=== PATIENT | male | born 2000 | race Caucasian/White ===

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

== ENCOUNTER 2022-02-11 22:06 | Observation (INO) | payer MEDICAID, SELFPAY ==
--- OUTSIDE RECORDS SUMMARY | 2022-02-11 22:13 | XMS_ITS ---
:2000 Author Care Team Providers Name Role Phone ERVIN REDD Primary Care Provider [phone] Allergies Code Code System Name Reaction Severity Status Onset 723 RxNorm Amoxicillin Rash Moderate Active ? Medications Name Status Start Date Stop Date ? ? chlorhexidine gluconate 0.12 % mouthwash Active ? Not available doxycycline monohydrate 100 mg capsule Active ? Not available Flonase Allergy Relief 50 mcg/actuation nasal spray,suspension A ctive ? Not available Diamondhead 1 spray every day by intranasal route. hydrocodone 5 mg-acetaminophen 325 mg tablet Active ? Not available ibuprofen 600 mg tablet Active ? Not avai lable Mucinex 600 mg tablet, extended release Active ? Not available Take 1 tablet every 12 hours by oral route as needed. sulfamethoxazole 800 mg-trimethoprim 160 mg tablet Active ? Not available Take 1 tablet every 12 hours by oral route for 5 days. triamcinolone acetonide 0.1 % topical ointment Active ? Not available Problems None recorded. Procedures None recorded. Results Lab Results None recorded. Past Encounters 10/22/2021 Multiple Joint Pain; Muscle Weakness Yanelis Leiva, PT: [address] [place] [phone], Ph. 09/21/2021 Multiple Joint Pain; Muscle Weakness Yanelis Leiva, PT: [address] [place] [phone], Ph. 08/31/2021 Multiple Joint Pain; Muscle Weakness Yanelis Leiva, PT: [address] [place] [phone], Ph. 08/24/2021 Multiple Joint Pain; Muscle Weakness Yanelis Leiva, PT: [address] [place] [phone], Ph. 08/10/2021 Multiple Joint Pain; Muscle Weakness Yanelis Leiva, PT: [address] [facility] [address], [place] [address], Ph. 08/03/2021 Multiple Joint Pain; Muscle Weakness Yanelis Leiva, PT: [address] [facility], [place] [phone], Ph. 07/16/2021 Yanelis Leiva, PT: [address] [facility], [place] [phone], Ph. Social History None recorded. Vaccine List None recorded. Plan of Care Reminders Provider Appointments None recorded. ? ? Lab None recorded. ? ? Referral None recorded. ? ? Procedures None recorded. ? ? Surgeries None recorded. ? ? Imaging None recorded. ? ? Vitals None recorded.
[2022-02-11 22:29] VITALS: BP 130/73; PULSE 98; RESP 18; TEMP 36.9; O2SAT 99
--- NOTE | 2022-02-11 22:32 | ED.GENADUL_ITS ---
Discharge Plan Disposition Patient Disposition: [facility] INPATIENT Condition: Stable Discharge Details Clinical Impression: Abdominal pain, Diarrhea Admit Date/Time: 02/12/22 00:13 Admit Provider: Abigail Hazel Attending Provider: Abigail Hazel Primary Care Provider: Radha Boles ED Provider: Matt Fish Medical Decision Making Patient presenting with 1 month of worsening diarrhea, weight loss, abdominal pain, nausea. Family history of Crohn's disease. Previous CT scan with diagnosis of colitis. Extremely thin with diffusely tender abdomen but otherwise normal vital signs and exam. At this point I would suspect patient also has Crohn's disease. IV established and laboratory studies sent including stool for pathogens and O&P. Laboratory studies are reassuring. Does have slightly elevated white count. Case discussed with surgery per request of observation admission overnight for hydration and consideration of colonoscopy to evaluate for possibility of Crohn's. Dr. Hazel has agreed to admit the patient. Patient and father agree. Lab Data Lab results reviewed: Yes I reviewed the patient's lab results. HPI General Mode of arrival: ambulatory . Date/Time Provider Initiated Documentation: 02/11/22 22:32 . Limitations to Documentation: no limitations . Information obtained by: patient and RN notes reviewed . HPI Narrative: Patient presents to ED with abdominal pain, nausea, diarrhea worsening over the course of a month. He is now having vomiting and on occasion bloody diarrhea. Patient initially seen at [facility] a month ago where CT scan reportedly showed colitis. Patient treated with a course of Bactrim with no improvement. This week seen by primary care. Started on famotidine and probiotic. Was also given ondansetron to help with nausea. Has lost 15 pounds in the last month. Is unable to eat anything and has difficulty with just fluids. Denies any fever. Denies any travel. Denies any contaminated food or water. Does have family history of Crohn's with mother, aunt and grandmother all diagnosed with the disease. Related Data Home Medications Medication Instructions Recorded Confirmed fluticasone propionate 50 1 spray intranasal DAILY #16 grams 01/05/22 02/09/22 mcg/actuation nasal spray,suspension (Flonase Allergy Relief) famotidine 20 mg tablet (Pepcid) 20 mg PO DAILY #14 tabs 02/09/22 02/09/22 ondansetron 4 mg disintegrating 4 mg PO Q8H PRN nausea and 02/09/22 02/09/22 tablet vomiting #21 tabs lactobacillus combination no.4 3 1 cell PO DAILY 02/11/22 02/11/22 billion cell capsule (Probiotic) Previous Rx's Medication Instructions Recorded fluticasone propionate 50 1 spray intranasal DAILY #16 grams 01/05/22 mcg/actuation nasal spray,suspension (Flonase Allergy Relief) famotidine 20 mg tablet (Pepcid) 20 mg PO DAILY #14 tabs 02/09/22 ondansetron 4 mg disintegrating 4 mg PO Q8H PRN nausea and 02/09/22 tablet vomiting #21 tabs Allergies Allergy/AdvReac Type Severity Reaction Status Date / Time amoxicillin Allergy Intermediate Skin Rash Verified 02/11/22 22:35 Review of Systems Narrative: 07/16 Review of Systems completed and is negative except as stated above in HPI (Systems reviewed: Const, Eyes, ENT, Resp, CV, GI, , MSK, Skin, Neuro) PFSH All Active Problems (Updated 02/12/22 @ 03:38 by Matt Fish MD) Soft tissue mass (Chronic) Medial aspect of left knee-per MRI osteochondroma- repeat MRI in one year Foot pain (Chronic) Noted overpronation of the ankles; joint laxity of knees and ankles; questioning leg length abnormality- refer to PT at [facility] Anterior epistaxis (Chronic) Acute bacterial sinusitis (Acute) Abdominal pain (Acute) Diarrhea (Acute) Medical History ADHD (attention deficit hyperactivity disorder) On no medication Autism Chronic pain syndrome Evaluation by [facility] physical therapy- exam, history and limitations consistent with chronic pain or fibromyalgia syndrome (08/04/21) Learning difficulty (08/16/12) Graduated from [employer] in spring 2020 and had an IEP throughout his education Surgical History Hx of wisdom tooth extraction Family History GRANDPARENT Anxiety Depression OTHER RELATIVE Cancer Asthma Social History Smoking/Tobacco Use Status: Never Smoking risk assessment performed?: Yes Alcohol Intake: never Substance use type: does not use Pets and animals: Yes Pets and animals: cat(s) and dog(s) Current gender identity: male Seatbelt use: always Helmet use: Yes Helmet use: always Fire extinguisher in home: Yes Carbon monox detector in home: Yes Firearms in home: Yes Firearms unloaded and locked: Yes Do you feel safe at home: Yes Do you feel safe in your relationship?: Yes Exam Narrative Exam Narrative: Const: Thin young male in NAD. HEENT: NC/AT. Normal facial exam. Eyes: Normal conjunctiva and sclera. Neck: Supple. Trachea midline. Lungs: Normal respiratory effort. Lungs are clear. Cor: RRR without murmur/gallop. Good radial pulses. GI: Soft. ND. Diffusely tender throughout with voluntary guarding. Neuro: A+O x 3. Normal speech, mentation, gait. Cranial nerves II - XII grossly intact. No gross motor or sensory deficit. Ext: No C/C/E. Skin: Warm and dry without rash.
[2022-02-11] MEDS: Ketorolac 15 MG/ML VIAL IVP (23:24)
[2022-02-11] MEDS: Prochlorperazine 10 MG/2 ML VIAL IVP (23:25)
[2022-02-11] MEDS: Lactated Ringers 1,000 ML 1000 ML IV (23:25)
[2022-02-11 23:32] LABS: Abs Immature Grans 0.06 10^3/uL (0.0-0.06); Absolute Basophil Count 0.08 10^3/uL (0.0-0.2); Absolute Monocyte Count 2.53 10^3/uL (0.1-0.8); Basophils % 0.6; Eosinophils % 0.8; HCT 42.6 % (40.0-50.0); HGB 14.7 g/dL (13.5-17.5); Immature Grans % 0.5; Lymphocytes % 13.4; MCHC 34.5 % (32.0-36.0); MCV 90 fL (80-95); Monocytes % 19.3; Neutrophils % 65.4; Platelet Count 234 10^3/uL (130-400); RBC 4.74 10^6/uL (4.36-5.78); RDW 12.3 % (11.8-14.1); RDW-SD 40.7 fL; WBC 13.09 10^3/uL (4.4-10.8)
[2022-02-11 23:34] LABS: Absolute Lymphocyte Count 1.75 10^3/uL (1.2-3.4); Absolute Neutrophil Count 8.56 10^3/uL (1.2-6.7)
[2022-02-11 23:47] LABS: ALT 12 U/L (16-63); AST 8 U/L (15-37); Albumin 3.3 g/dL (3.4-5.0); Alkaline Phosphatase 62 U/L (46-116); Anion Gap 8.3 mmol/L (3-11); BUN 9 mg/dL (7-18); Bilirubin, Total 1.1 mg/dL (0.2-1.0); CO2 27.7 mmol/L (21.0-32.0); CREATININE 0.9 mg/dL (0.70-1.30); Calcium 8.5 mg/dL (8.5-10.1); Chloride 99 mmol/L (98-107); Glucose 111 mg/dL (74-106); Lipase 20 U/L (73-393); Magnesium 2.4 mg/dL (1.8-2.4); Potassium 3.7 mmol/L (3.5-5.1); Sodium 135 mmol/L (136-145); Total Protein 6.5 g/dL (6.4-8.2)
[2022-02-11 23:48] LABS: Diff Comment Agrees w/ Instrument; RBC Morphology Normal
[2022-02-12 00:29] LABS: Source Nasal/Nares
[2022-02-12] MEDS: Lactated Ringers 1,000 ML 125 ML IV ×3 (01:19→19:36)
[2022-02-12 01:20] VITALS: BP 105/63; PULSE 79; RESP 16; TEMP 36.7; O2SAT 95
[2022-02-12 08:44] VITALS: BP 106/65; PULSE 81; RESP 16; TEMP 36.5; O2SAT 97
--- NOTE | 2022-02-12 08:51 | W.PM.HP.N ---
Date of service: 02/12/22 Time of Service: 07:51 Assessment and Plan Assessment and plan (1) Diarrhea: Status: Acute Assessment and plan: Informed consent is obtained for the procedural (explained in simple layman's terms that the pt and/or family could understand) explaining risks vs benefits and alternatives to the procedure and consequences if we do not do the procedure and need/rational for the procedure. Risks include but are not limited to: bleeding, infection, perforation of esophagus, stomach, colon, small intestines, bronchus or trachea, or PTX. This would necessitate emergency surgery to repair the damage w/ possible ostomy; and other associated complications w/ the required surgery. Also complications of anesthesia including aspiration, AR/CVA/. I did review his CT and labs from [facility]. He has been running persistent white count around 12. His CRP from [facility] was 7. His CRP today is 3.7. They did not do any stool studies at [facility]. Full studies here are still pending. Stool fecal calprotectin was not ordered. This is a send out for our institution. (2) Abdominal pain: Status: Acute (3) Family history of Crohn's disease: Status: Acute History of Present Illness Narrative: Tomas is a 21-year-old male who presented to the ER last night complaining of diarrhea and abdominal pain. This is been going on for more than 1 month's time it is becoming worse he has 6+ stools a day they range from [place] 6-7. He occasionally has some blood with wiping only when he wiped. He denies any travel he denies any new supplements or vitamins. He denies any new lifestyle changes. He denies any new pets in the home. He has been given Zofran Pepcid Bactrim and probiotics. These have helped. He did have a CT scan at [facility] which showed diffuse thickening of the colon wall and he was diagnosed with colitis. When he eats he gets nausea and stomach cramps. He has not eaten for the last 2 days now. His symptoms are becoming worse. His mother, and his maternal aunt, and maternal grandmother all have Crohn's. Mother takes currently. He denies any history of diabetes or seizures. He does have reactive airway disease that is worse when he becomes ill and then he requires an inhaler. He does not require inhaler on a regular basis. He denies any heart problems or heart disease. He denies any hypertension. He denies any problems with joint pain or swelling. He denies any problems with rashes. No jaundice. Review of Systems All systems reviewed & are unremarkable except as noted in HPI and below PFSH All Active Problems (Updated 02/12/22 @ 14:37 by Abigail Hazel DO) Family history of Crohn's disease (Acute) Diarrhea (Acute) Soft tissue mass (Chronic) Medial aspect of left knee-per MRI osteochondroma- repeat MRI in one year Foot pain (Chronic) Noted overpronation of the ankles; joint laxity of knees and ankles; questioning leg length abnormality- refer to PT at [facility] Anterior epistaxis (Chronic) Acute bacterial sinusitis (Acute) Abdominal pain (Acute) Diarrhea (Acute) Medical History ADHD (attention deficit hyperactivity disorder) On no medication Autism Chronic pain syndrome Evaluation by [facility] physical therapy- exam, history and limitations consistent with chronic pain or fibromyalgia syndrome (08/04/21) Learning difficulty (08/16/12) Graduated from [employer] in spring 2020 and had an IEP throughout his education Surgical History Hx of wisdom tooth extraction Family History GRANDPARENT Anxiety Depression OTHER RELATIVE Cancer Asthma Social History Smoking/Tobacco Use Status: Never Smoking risk assessment performed?: Yes Alcohol Intake: never Substance use type: does not use Pets and animals: Yes Pets and animals: cat(s) and dog(s) Current gender identity: male Seatbelt use: always Helmet use: Yes Helmet use: always Fire extinguisher in home: Yes Carbon monox detector in home: Yes Firearms in home: Yes Firearms unloaded and locked: Yes Do you feel safe at home: Yes Do you feel safe in your relationship?: Yes Meds Allergies and Home Medications Allergies Allergy/AdvReac Type Severity Reaction Status Date / Time amoxicillin Allergy Intermediate Skin Rash Verified 02/11/22 22:35 Home Medications Medication Instructions Recorded Confirmed Type fluticasone propionate 50 1 spray intranasal DAILY #16 grams 01/05/22 02/09/22 Rx mcg/actuation nasal spray,suspension (Flonase Allergy Relief) famotidine 20 mg tablet (Pepcid) 20 mg PO DAILY #14 tabs 02/09/22 02/09/22 Rx ondansetron 4 mg disintegrating 4 mg PO Q8H PRN nausea and 02/09/22 02/09/22 Rx tablet vomiting #21 tabs lactobacillus combination no.4 3 1 cell PO DAILY 02/11/22 02/11/22 History billion cell capsule (Probiotic) Exam Const Other: PHYSICAL EXAM GENERAL APPEARANCE: Alert, healthy appearance, oriented, in no acute distress SKIN: No rashes.? No breakdown HYDRATION: Well hydrated HEAD, EYES, EARS, NECK, THROAT: Head is normocephalic, pupils equal, round, reactive to light and accommodation, ocular movement intact, sclera clear and no jaundice. ?Dentition intact. No sore throat.? No jaw pain. No thrush NECK: Supple, Trachea midline. No JVD. LUNGS: normal respiration/nl chest excursion. ?Clear to auscultation B/l no R/R/W ?HEART: Regular rate and rhythm, EXTREMITY: No edema or cyanosis? no leg pain, redness, swelling.? No IV infiltration ABDOMEN: mild diffuse tender to palpation, no masses or distention, no hernias. Normal bowel sounds NEURO: no focal neuro deficits. ? Results Labs Result diagrams: 02/12/22 09:03 02/11/22 23:21 Labs: Laboratory Results - last 24 hr 02/11/22 02/11/22 02/12/22 23:21 23:21 00:25 WBC 13.09 H RBC 4.74 Hgb 14.7 Hct 42.6 MCV 90 MCH 31.0 MCHC 34.5 RDW 12.3 Plt Count 234 MPV 9.0 Immature Gran % 0.5 Neutrophils % 65.4 Lymphocytes % 13.4 Monocytes % 19.3 Eosinophils % 0.8 Basophils % 0.6 Nucleated RBC % 0.0 Absolute Neutrophils 8.56 H Absolute Lymphocytes 1.75 Absolute Monocytes 2.53 H Absolute Eosinophils 0.10 Absolute Basophils 0.08 RBC Morphology Normal Sodium 135 L Potassium 3.7 Chloride 99 Carbon Dioxide 27.7 Anion Gap 8.3 BUN 9 Creatinine 0.9 Estimated GFR/1.73 m2 >= 60.00 Glucose 111 H Calcium 8.5 Magnesium 2.4 Total Bilirubin 1.1 H AST 8 L ALT 12 L Alkaline Phosphatase 62 Total Protein 6.5 Albumin 3.3 L Lipase 20 COVID-19 Source Nasal/Nares Last Vital Signs Temp 36.5 C 02/12/22 08:44 Pulse 81 02/12/22 08:44 Resp 16 02/12/22 08:44 BP 106/65 02/12/22 08:44 Pulse Ox 97 02/12/22 08:44
[2022-02-12 08:58] LABS: COVID-19 PCR Negative (Negative)
[2022-02-12 09:05] LABS: Abs Immature Grans 0.05 10^3/uL (0.0-0.06); Absolute Eosinophil Count 0.14 10^3/uL (0.0-0.7); Absolute Lymphocyte Count 1.27 10^3/uL (1.2-3.4); Absolute Monocyte Count 2.29 10^3/uL (0.1-0.8); Basophils % 0.8; Eosinophils % 1.1; HCT 42.6 % (40.0-50.0); HGB 14.7 g/dL (13.5-17.5); Immature Grans % 0.4; Lymphocytes % 10.2; MCH 31.1 pg (27.0-33.0); MCHC 34.5 % (32.0-36.0); MCV 90 fL (80-95); MPV 8.9 fL (8.0-11.0); Monocytes % 18.4; Neutrophils % 69.1; Platelet Count 215 10^3/uL (130-400); RBC 4.73 10^6/uL (4.36-5.78); RDW 12.5 % (11.8-14.1); RDW-SD 41.1 fL; WBC 12.45 10^3/uL (4.4-10.8)
[2022-02-12 09:20] LABS: Diff Comment Diff Reviewed; RBC Morphology Normal
--- NOTE | 2022-02-12 14:19 | ANES.PREOP_ITS ---
General Info Date of Service Date Performed: 02/12/22 Height: 6 ft 1 in Weight: 58.967 kg Body Mass Index (BMI): 17.1 Surgical Procedure: Operation Date: 02/12/22 14:40 Proposed Procedure Side Surgeon p Flexible Sigmoidoscopy Abigail Hazel, DO Meds Allergies and Home Medications Allergies Allergy/AdvReac Type Severity Reaction Status Date / Time amoxicillin Allergy Intermediate Skin Rash Verified 02/11/22 22:35 Home Medication Medication Instructions Recorded fluticasone propionate 50 1 spray intranasal DAILY #16 grams 01/05/22 mcg/actuation nasal spray,suspension (Flonase Allergy Relief) famotidine 20 mg tablet (Pepcid) 20 mg PO DAILY #14 tabs 02/09/22 ondansetron 4 mg disintegrating 4 mg PO Q8H PRN nausea and 02/09/22 tablet vomiting #21 tabs lactobacillus combination no.4 3 1 cell PO DAILY 02/11/22 billion cell capsule (Probiotic) Current Visit Medications: Current Medications Generic Name Dose Route Start Last Admin Trade Name Freq PRN Reason Stop Dose Admin Sodium Chloride 500 mls @ 0 mls/hr 02/11/22 22:49 Saline 500ml Bag IV PRN PRN As Directed Ringer's Solution 1,000 mls @ 125 mls/hr 02/12/22 00:30 02/12/22 14:07 IV 0 mls/hr INFUSION MERCEDES Infusion IV Miscellaneous Supplies 1 each 02/11/22 23:00 Iv Access IV DIRECTED MERCEDES Sodium Chloride 0 ml 02/11/22 22:49 Normal Saline Flush 10 Ml Syr IVP PRN PRN PFSH Active Problems Active Problems: Problem Status Onset Code Soft tissue mass M79.89 Foot pain M79.673 Anterior epistaxis R04.0 Acute bacterial sinusitis J01.90, B96.89 Abdominal pain R10.9 Diarrhea R19.7 Medical History Medical History ADHD (attention deficit hyperactivity disorder) On no medication Autism Chronic pain syndrome Evaluation by [facility] physical therapy- exam, history and limitations consistent with chronic pain or fibromyalgia syndrome (08/04/21) Learning difficulty (08/16/12) Graduated from [employer] in spring 2020 and had an IEP throughout his education Surgical History Surgical History Hx of wisdom tooth extraction Tobacco Smoking/Tobacco Use Status: Never Passive smoking exposure: No Alcohol Alcohol Intake: never Substance Use Substance use type: does not use Vital Signs and Lab Results Vital Signs Most Recent Vital Signs in EMR: Most Recent Vital Signs Temp Pulse Resp BP Pulse Ox 36.5 C 81 16 106/65 97 02/12/22 08:44 02/12/22 08:44 02/12/22 08:44 02/12/22 08:44 02/12/22 08:44 Lab Results Result Diagrams: 02/12/22 09:03 02/11/22 23:21 Blood Type / Crossmatch: No Data to Display Complete Blood Count: White Blood Count 12.45 10^3/uL (4.4-10.8) H 02/12/22 09:03 Red Blood Count 4.73 10^6/uL (4.36-5.78) 02/12/22 09:03 Hemoglobin 14.7 g/dL (13.5-17.5) 02/12/22 09:03 Hematocrit 42.6 % (40.0-50.0) 02/12/22 09:03 Platelet Count 215 10^3/uL (130-400) 02/12/22 09:03 Complete Metabolic Panel: Sodium Level 135 mmol/L (136-145) L 02/11/22 23:21 Potassium Level 3.7 mmol/L (3.5-5.1) 02/11/22 23:21 Chloride Level 99 mmol/L (98-107) 02/11/22 23:21 Carbon Dioxide Level 27.7 mmol/L (21.0-32.0) 02/11/22 23:21 Blood Urea Nitrogen 9 mg/dL (7-18) 02/11/22 23:21 Creatinine 0.9 mg/dL (0.70-1.30) 02/11/22 23:21 Estimated GFR/1.73 m2 >= 60.00 (mL/min/1.73m2) 02/11/22 23:21 Magnesium Level 2.4 mg/dL (1.8-2.4) 02/11/22 23:21 Calcium Level 8.5 mg/dL (8.5-10.1) 02/11/22 23:21 Albumin 3.3 g/dL (3.4-5.0) L 02/11/22 23:21 Glucose Level 111 mg/dL (74-106) H 02/11/22 23:21 C-Reactive Protein 3.70 mg/dL (0.0-0.3) H 02/12/22 09:03 Liver Function Panel: Alanine Aminotransferase (ALT/SGPT) 12 U/L (16-63) L 02/11/22 2 3:21 Aspartate Amino Transf (AST/SGOT) 8 U/L (15-37) L 02/11/22 23:2 1 Coagulation Panel: No Data to Display Cardiac Panel: No Data to Display Arterial Blood Gas: No Data to Display Venous Blood Gas: No Data to Display Pancreas Panel: Lipase 20 U/L (73-393) 02/11/22 23:21 Thyroid Panel: No Data to Display Infectious Disease: Coronavirus (COVID-19)(PCR) Negative (Negative) 02/12/22 00:25 Coronavirus 2019 Source Nasal/Nares 02/12/22 00:25 Blood Cultures: No Data to Display Toxicology Panel: No Data to Display Anesthesia Assessment and Plan Anesthesia History Personal History: No History of Anesthesia Complications and Awareness Under Anesthesia Family History: No Family History of Anesthesia Complications Exercise Tolerance Exercise Tolerance: Metabolic Equivalents>4 Pertinent Negatives Pertinent Negatives: No Symptoms of GERD, No Major Cardiovascular Symptoms or Complaints, No Major Pulmonary Symptoms or Complaints and No History of CVA/TIA Cardiac & Pulmonary Exam Cardiac Exam: Normal S1/S2 Heart Sounds Pulmonary Exam: Clear Bilateral Breath Sounds Cardiac and Pulmonary Comment:: Asthmatic cough with URI uses inhaler prn Implantable Cardiac Device Does patient have a Pacemaker or an ICD?: No Airway Exam Known Difficult Airway: No Mallampati Class: 1 Mouth Opening: Normal (> 3cm) Thyromental Distance: Greater than 3 cm Neck Range of Motion: Full ROM Neck Circumference: Normal Teeth Condition: Normal Dentition ASA Classification ASA Score: ASA 2 Emergency Case?: No NPO Status NPO Status: NPO Clears >2 hours, Solids >8 hours Anesthesia Plan Resuscitation Status: Full Code Anesthesia Technique: General Anesthesia Airway Planned: Natural Airway Monitors Used: Standard Monitors
[2022-02-12 14:24] VITALS: BMI 17.1
[2022-02-12] MEDS: Lactated Ringers 1,000 ML 30 ML IV (14:37)
--- NOTE | 2022-02-12 14:44 | INITIAL_ITS ---
- If Service Date Differs Date of service: 02/12/22 Time of Service: 14:44 Care Management Initial Assess REASON FOR HOSPITALIZATION:: Abdominal pain, Diarrhea PAST MEDICAL HISTORY/PAST SURGICAL HISTORY:: Colitis, Abdominal pain, family history of Crohn's disease, reactive airway disease. ADHD (attention deficit hyperactivity disorder). On no medication. Chronic pain syndrome. Evaluation by [facility] physical therapy- exam, history and limitations consistent with chronic pain or fibromyalgia syndrome (08/04/21). Learning difficulty: Graduated from [employer] in spring 2020 and had an IEP throughout his education, wisdom tooth extraction PREVIOUS FUNCTIONAL STATUS/SOCIAL/FAMILY SUPPORTS:: Mina resides in [place] and is independent at baseline. His parents are supportive and reside in [place]. CODE STATUS:: Full Code INSURANCE COVERAGE / FINANCIAL ISSUES:: [employer] CURRENT HOME/COMMUNITY SERVICES/EQUIPMENT:: Recent GI referral to [facility] PRIMARY CARE PHYSICIAN:: Dr. Boles; [place] POTENTIAL DISCHARGE NEEDS:: Colonoscopy anticipated, as well as outpatient follow up. PATIENT/FAMILY EDUCATION NEEDS:: Review discharge instructions, discuss Ask Me Three. ANTICIPATED BARRIERS TO DISCHARGE:: None identified.
--- NOTE | 2022-02-12 14:50 | BOWEL_PTH ---
PATIENT: Mina Verma LOC: U#:[id number] AGE/SX: 21/M ROOM: 207 RE02/12/[address]: Abigail Hazel : 2000 BED: A DIS: 02/14/2022 SPEC #: [id number] RECD: 02/12/22 15:31 STATUS: SABRINA REQ #: [id number] JERZY: 02/12/22 14:[address]: Abigail Hazel DEPT: Surgical Specimen RECD BY: Radha Kan ENTERED: 02/12/22 15:35 SP TYPE: Bowel OTHR DR: Radha Boles MD Tissues: 1 - BIOPSY BOWEL 2 - BIOPSY BOWEL 3 - BIOPSY BOWEL Procedures: GROSS AND MICRO LEVEL 4 Comments: [id number]
[2022-02-12 15:09] VITALS: BP 112/67; PULSE 82; RESP 16; TEMP 36.9; O2SAT 98
--- NOTE | 2022-02-12 15:41 | W.ANESPOSTOP ---
Postoperative Evaluation Date, Time and Location Date Performed: 02/12/22 Time Performed: 14:41 Patient Location: Day Surgery Unit Vital Signs Most Recent Imported Vital Signs: Most Recent Vital Signs Temp Pulse Resp BP Pulse Ox 36.9 C 82 16 112/67 98 02/12/22 15:09 02/12/22 15:09 02/12/22 15:09 02/12/22 15:09 02/12/22 15:09 Pain Score Most Recent Pain Score: Most Recent Pain Score Pain Level 0 02/12/22 15:09 Assessment Mental Status: Awake (Alert & Oriented to Patient Baseline) Airway and Respiratory Function: Patent airway with normal (patient baseline) respiratory exam Cardiovascular Function: Hemodynamically Stable Hydration Status: Adequately Hydrated Nausea & Vomiting: No Nausea or Vomiting Pain: Pt. Denies Any Pain Peripheral Nerve Block: Patient did not receive a nerve block
--- NOTE | 2022-02-12 15:44 | W.COLOREPORT ---
Colonoscopy Report Date of procedure: 02/12/22 Pre-op diagnosis general: diarrhea/ wt loss Post-op diagnosis procedure note: other (Crohns ) Surgeon: Abigail Hazel Anesthesia Type: General:No Airway Estimated blood loss (mL): 1 Pathology: other Complications: None Disposition: floor Procedure Description: After informed consent was obtained the patient was taken to the procedure room and placed in a left decubitous position. Monitors were applied and a time out was done. The patients name, date of , procedure, allergies to medications and metal in their body was reviewed. The patient was then sedated. Once sedated and comfortable a rectal exam was done. External exam was normal. Internal exam revealed a normal sphincter tone and no palpable masses. The prostate nl The scope was then introduced and retrofelexed. No internal hemorrhoids were identified. There is no anal or perianal disease identified. The scope is maneuvered up to the splenic flexure. The colon has diffuse patchy erythema that bleeds quite readily. It is covered with friable, yellowish membrane. Multiple biopsies are taken at 50/30/20 centimeters in the rectum. It bleeds quite readily. This almost looks like pseudomembranous colitis. But it also could be Crohn's disease. The colitis becomes more severe further we go up the colon. Is not safe to advance the scope past the splenic flexure and the procedure was terminated. scope was removed and the patient was woken up and taken back to Same day surgery in stable condition. The patient tolerated the procedure well and there were no immediate complications. Follow up: Patient will require a complete colonoscopy in the future.
[2022-02-12 16:59] LABS: C Diff PCR Positive (Negative)
[2022-02-12] MEDS: metroNIDAZOLE 500 MG/100 ML BAG 100 MG IVPB (18:10)
[2022-02-12 21:55] LABS: Campylobacter PCR Negative (Negative); Salmonella PCR Negative (Negative); Shiga Toxin PCR Negative (Negative); Shigella/Enteroinvasive Ecoli Negative (Negative)
--- NOTE | 2022-02-12 22:33 | W.PM.PROGNOT ---
Date of Service Date of service: 02/12/22 Time of Service: 16:00 Assessment and Plan Assessment and plan (1) Family history of Crohn's disease: Status: Acute (2) Diarrhea: Status: Acute Assessment and plan: I discussed the findings of colonoscopy with dad. Most likely this represents Crohn's. We do not have Biologics in house so we would need to start him on steroids. However I do want to check him for C. difficile prior to starting any steroids/immunosuppressants. the colon was red and inflamed with skip lesions, but it almost looks like he had pseudomembranes, so I do want to check for C. difficile in the off chance that this is C. difficile colitis on top of Crohn's disease. (3) Abdominal pain: Status: Acute Objective Last Vital Signs Temp 36.9 C 02/12/22 15:09 Pulse 82 02/12/22 15:09 Resp 16 02/12/22 15:09 BP 112/67 02/12/22 15:09 Pulse Ox 98 02/12/22 15:09 Laboratory Results - last 24 hr 02/11/22 02/11/22 02/12/22 23:21 23:21 00:25 WBC 13.09 H RBC 4.74 Hgb 14.7 Hct 42.6 MCV 90 MCH 31.0 MCHC 34.5 RDW 12.3 Plt Count 234 MPV 9.0 Immature Gran % 0.5 Neutrophils % 65.4 Lymphocytes % 13.4 Monocytes % 19.3 Eosinophils % 0.8 Basophils % 0.6 Nucleated RBC % 0.0 Absolute Neutrophils 8.56 H Absolute Lymphocytes 1.75 Absolute Monocytes 2.53 H Absolute Eosinophils 0.10 Absolute Basophils 0.08 RBC Morphology Normal Sodium 135 L Potassium 3.7 Chloride 99 Carbon Dioxide 27.7 Anion Gap 8.3 BUN 9 Creatinine 0.9 Estimated GFR/1.73 m2 >= 60.00 Glucose 111 H Calcium 8.5 Magnesium 2.4 Total Bilirubin 1.1 H AST 8 L ALT 12 L Alkaline Phosphatase 62 C-Reactive Protein Total Protein 6.5 Albumin 3.3 L Lipase 20 Stl C.difficile Tox PCR COVID-19 Source Nasal/Nares SARS-CoV-2 (PCR) Negative 02/12/22 02/12/22 02/12/22 09:03 09:03 14:10 WBC 12.45 H RBC 4.73 Hgb 14.7 Hct 42.6 MCV 90 MCH 31.1 MCHC 34.5 RDW 12.5 Plt Count 215 MPV 8.9 Immature Gran % 0.4 Neutrophils % 69.1 Lymphocytes % 10.2 Monocytes % 18.4 Eosinophils % 1.1 Basophils % 0.8 Nucleated RBC % 0.0 Absolute Neutrophils 8.60 H Absolute Lymphocytes 1.27 Absolute Monocytes 2.29 H Absolute Eosinophils 0.14 Absolute Basophils 0.10 RBC Morphology Normal Sodium Potassium Chloride Carbon Dioxide Anion Gap BUN Creatinine Estimated GFR/1.73 m2 Glucose Calcium Magnesium Total Bilirubin AST ALT Alkaline Phosphatase C-Reactive Protein 3.70 H Total Protein Albumin Lipase Stl C.difficile Tox PCR Positive A COVID-19 Source SARS-CoV-2 (PCR)
[2022-02-12 23:10] VITALS: BP 104/65; PULSE 90; RESP 14; TEMP 37.6; O2SAT 96
[2022-02-13] MEDS: Vancomycin 125 MG CAP PO ×4 (01:22→17:46)
[2022-02-13] MEDS: metroNIDAZOLE 500 MG/100 ML BAG 100 MG IVPB ×2 (01:22→10:22)
[2022-02-13] MEDS: Lactated Ringers 1,000 ML 100 ML IV (04:57)
[2022-02-13 08:00] VITALS: BP 110/65; PULSE 87; RESP 14; TEMP 36.6; O2SAT 97
--- NOTE | 2022-02-13 11:43 | W.PM.PROGNOT ---
Date of Service Date of service: 02/13/22 Time of Service: 11:43 Assessment and Plan Assessment and plan (1) Colitis due to Clostridium difficile: Status: Acute Assessment and plan: 21 yo with 4 weeks of diarrhea, c diff positive and cross sectional imaging reportedly showing non-specific thickening of the colon.(I am unable to view the images myself and only have the report). In setting of strong family history of Crohn's disease. Colonoscopy report states perianal sparing, but otherwise diffuse inflmmation with pseudomembranes. He is hemodynamically stable and is between 24-48 hours of medication initiation. Hopefully this just represents a C. Diff infection. IBD could be playing an underlying role as well. Biopsies results should help clarify all of this but there is some optimism that this will be just infectious and resolve with treatment. Certainly he will likely be able to be discharged home tomorrow and followup on an outpatient basis. Chronic colitis nutritional and dietary strategies can be discussed on an outpatient basis and a nutrionist consultation may be helpful. At patient's request, I discussed extensively with father via telephone. Overall I concurred with Dr. Hazel's assessment and management strategy and reiterated that the diagnosis of Crohn's disease has yet to be determined/confirmed. PLAN for today: Reg diet as tolerated (Encouraged patient to research and eat diets with soluble fiber and other diarrhea-friendly diets) Hydration was reinforced as the most important aspect. Stop IVF, ensure he is hydrating himself adequately before discharge. Convert IV Abx to oral (Vanc + Flagyl) Likely DC tomorrow Subjective Subjective Interval history since last seen: No changes. Neither better nor worse. Denies fevers. Has had 3 liquid diarrhea events this morning. Thinks this may be an improvement. Abdominal pain is minimal and only uncomfortable when he is having a bowel movement. Voiding well. Tolerating food. Exam Narrative Exam Narrative: Gen: Non-toxic, comfortable and interactive Neuro: AxO x3 Psych: Appropriate mood and affect. Good insight and understanding. Abdomen: Soft, nondistended, mild tenderness in all quadrants without peritoneal signs. Objective Last Vital Signs Temp 97.9 F 02/13/22 08:00 Pulse 87 02/13/22 08:00 Resp 14 02/13/22 08:00 BP 110/65 02/13/22 08:00 Pulse Ox 97 02/13/22 08:00 Laboratory Results - last 24 hr 02/11/22 02/12/22 22:20 14:10 Stool Campylobacter PCR Negative Stl C.difficile Tox PCR Positive A Stool Salmonella PCR Negative Stool Shigella PCR Negative Shiga Toxin (PCR) Negative
[2022-02-13] MEDS: metroNIDAZOLE 500 MG TAB PO (17:46)
[2022-02-13 22:30] VITALS: BP 116/67; PULSE 96; RESP 17; TEMP 37.1; O2SAT 99
[2022-02-14] MEDS: metroNIDAZOLE 500 MG TAB PO ×2 (01:11→10:44)
[2022-02-14] MEDS: Vancomycin 125 MG CAP PO ×2 (01:11→06:20)
[2022-02-14 06:34] LABS: Abs Immature Grans 0.08 10^3/uL (0.0-0.06); Absolute Basophil Count 0.08 10^3/uL (0.0-0.2); Absolute Eosinophil Count 0.29 10^3/uL (0.0-0.7); Absolute Lymphocyte Count 1.55 10^3/uL (1.2-3.4); Absolute Monocyte Count 1.25 10^3/uL (0.1-0.8); Absolute Neutrophil Count 5.54 10^3/uL (1.2-6.7); Basophils % 0.9; Eosinophils % 3.3; HCT 40.6 % (40.0-50.0); HGB 13.8 g/dL (13.5-17.5); Immature Grans % 0.9; Lymphocytes % 17.6; MCV 91 fL (80-95); Monocytes % 14.2; Neutrophils % 63.1; Platelet Count 235 10^3/uL (130-400); RBC 4.45 10^6/uL (4.36-5.78); RDW 12.6 % (11.8-14.1); RDW-SD 41.6 fL; WBC 8.79 10^3/uL (4.4-10.8)
[2022-02-14 07:03] LABS: Anion Gap 6.1 mmol/L (3-11); BUN 4 mg/dL (7-18); CO2 30.9 mmol/L (21.0-32.0); CREATININE 0.7 mg/dL (0.70-1.30); Calcium 8.1 mg/dL (8.5-10.1); Chloride 104 mmol/L (98-107); Glucose 124 mg/dL (74-106); Potassium 3.5 mmol/L (3.5-5.1); Sodium 141 mmol/L (136-145)
[2022-02-14] MEDS: Famotidine 20 MG TAB PO (08:01)
[2022-02-14 08:08] VITALS: BP 113/78; PULSE 66; RESP 14; TEMP 35.9; O2SAT 94
--- NOTE | 2022-02-14 09:14 | W.PM.PROGNOT ---
Date of Service Date of service: 02/14/22 Time of Service: 09:14 Assessment and Plan Assessment and plan (1) Colitis due to Clostridium difficile: Status: Acute Assessment and plan: 21 yo man with C. Diff colitis. Hemodynamically stable and doing well. Bowel function already seems to be improving/responding. No evidence of dehydration clinically or in labwork. OKay to DC home on oral therapy. Subjective Subjective Interval history since last seen: This morning, has had no diarrhea. Passing gas. He is excited since this is a new and significant imrpovement. Tolerating PO. No IV fluids since yesterday. No fevers. No abdominal pain. Exam Narrative Exam Narrative: Gen: nontoxic and comfortable Neuro: AxOx3 Psych: Good mood and affect. Good Abdomen: Soft, nontender, nondistended. Objective Last Vital Signs Temp 96.6 F L 02/14/22 08:08 Pulse 66 02/14/22 08:08 Resp 14 02/14/22 08:08 BP 113/78 02/14/22 08:08 Pulse Ox 94 02/14/22 08:08 Laboratory Results - last 24 hr 02/14/22 02/14/22 06:15 06:15 WBC 8.79 RBC 4.45 Hgb 13.8 Hct 40.6 MCV 91 MCH 31.0 MCHC 34.0 RDW 12.6 Plt Count 235 MPV 9.0 Immature Gran % 0.9 Neutrophils % 63.1 Lymphocytes % 17.6 Monocytes % 14.2 Eosinophils % 3.3 Basophils % 0.9 Nucleated RBC % 0.0 Absolute Neutrophils 5.54 Absolute Lymphocytes 1.55 Absolute Monocytes 1.25 H Absolute Eosinophils 0.29 Absolute Basophils 0.08 Sodium 141 Potassium 3.5 Chloride 104 Carbon Dioxide 30.9 Anion Gap 6.1 BUN 4 L Creatinine 0.7 Estimated GFR/1.73 m2 >= 60.00 Glucose 124 H Calcium 8.1 L
--- NOTE | 2022-02-14 11:48 | CMDISCH_ITS ---
- If Service Date Differs Date of service: 02/14/22 Time of Service: 11:48 LACE Index Scoring Tool - Questions: Length of Stay (in days): 2 Acuity (Admit via E.D.?): Yes E.D. Visits: 1 - Answers: Total Score: 6 Risk of Readmission: Low Risk Care Management Discharge Reason for Hospitalization: Abdominal pain, Diarrhea Discharge Plan: Mina will return home today with no new services. His father was present for discharge, and will drive him home via private vehicle. [place] pro vided a letter for him to return to work after being cleared by his PCP, per MD. He will follow up with his PCP and discharge plan of care. He is happy to be going home. Patient/Family Education Needs: Review discharge instructions and medications, discussion of self care needs including ask me three.
[2022-02-15 15:37] LABS: c-ANCA Negative (Negative); p-ANCA Negative (Negative)
[2022-02-15 15:52] LABS: ANCA Interpretation Negative (Negative)
== END 2022-02-14 11:24 | disposition home or self-care (01) ==
LOC: ER 02-12 00:23 → MS 02-12 01:05
PROVIDERS: Student in an Organized Health Care Education/Training Program; Admitting Provider Surgery; Emergency Provider Emergency Medicine; Visit Provider Surgery
PROC: 0DJD8ZZ Inspection of Lower Intestinal Tract, Via Natural or Artificial Opening Endoscopic (ICD-10-PCS; CPT 45330; principal; 2022-02-12 14:30)
DX: A04.72 Enterocolitis due to Clostridium difficile, not specified as recurrent (principal); K92.1 Melena; R63.4 Abnormal weight loss; R10.84 Generalized abdominal pain; Z68.1 Body mass index [BMI] 19.9 or less, adult; R10.817 Generalized abdominal tenderness; Z83.79 Family history of other diseases of the digestive system; R11.2 Nausea with vomiting, unspecified; Z79.899 Other long term (current) drug therapy; D16.22 Benign neoplasm of long bones of left lower limb; F90.9 Attention-deficit hyperactivity disorder, unspecified type; G89.4 Chronic pain syndrome; F84.0 Autistic disorder; F79 Unspecified intellectual disabilities; J45.909 Unspecified asthma, uncomplicated; Z20.822 Contact with and (suspected) exposure to COVID-19
CPT/HCPCS: 45380; 36415; 80048; 80053; 83690; 86255; 87493; 87505; 87635; 88305; 96361; 96365; 96366; 96374; 96375; 99285; 83735; 85025; 86140; 87177; G0378; J0780; J1885

== ENCOUNTER 2022-07-27 13:19 | Outpatient (REF) | payer MEDICAID, SELFPAY ==
[2022-07-29 11:24] LABS: COVID-19 RT-PCR UVMMC Result Negative (Negative)
== END 2022-07-27 13:20 | disposition home or self-care (01) ==
LOC: LBN 13:19
PROVIDERS: Referring Provider Pediatrics; Visit Provider Pediatrics
DX: Z20.822 Contact with and (suspected) exposure to COVID-19 (principal)
CPT/HCPCS: U0003

== ENCOUNTER 2022-11-11 15:44 | Outpatient (CLI) | payer MEDICAID, SELFPAY ==
--- NOTE | 2022-11-11 15:15 | DI.RAD_ITS ---
Exam(s) XR KNEE LT 3V AP,LAT,MANDY EXAM: XR KNEE LT 3V AP,LAT,MANDY CLINICAL HISTORY: knee pain D16.9 BENIGN NEOPLASM OF BONE, OSTEOCHONDROMA. TECHNIQUE: 2D digital imaging was performed. COMPARISON: CR XR FEMUR LT from 08/14/2021 MR MR LOWER JOINT LT WO/W from 08/14/2021 FINDINGS: 3 views No evidence of fracture although there does appear to be a small joint effusion which may signify an internal derangement. No degenerative changes. No joint space narrowing. Incidentally noted is a cephalad pointing osteochondroma coming off the medial aspect of the distal f emoral diaphysis and measuring 2 cm length. This is unchanged from 08/14/2021. No other significant osseous findings. 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 This is unchan ged radiographically from 08/14/2021. There is a knee joint effusion noted. This may signify an internal derangement. DATA REPOSITORY: RADIATION DOSE DELIVERED:
== END 2022-11-11 16:04 ==
LOC: DI 15:46
PROVIDERS: Visit Provider Nurse Practitioner Family
DX: D16.22 Benign neoplasm of long bones of left lower limb (principal)
CPT/HCPCS: 73562

== ENCOUNTER 2023-06-27 11:41 | Outpatient (REF) | payer MEDICAID, SELFPAY ==
[2023-06-28 15:25] LABS: Chlamydia Result Negative (Negative); GC Result Negative (Negative)
== END 2023-06-27 11:42 | disposition home or self-care (01) ==
LOC: LBN 11:41
PROVIDERS: Referring Provider Pediatrics; Visit Provider Pediatrics
DX: R30.0 Dysuria (principal); Z11.3 Encounter for screening for infections with a predominantly sexual mode of transmission
CPT/HCPCS: 87491; 87591

== ENCOUNTER 2023-09-28 16:35 | Outpatient (REF) | payer SELFPAY ==
[2023-09-30 16:31] LABS: Chlamydia Result Negative (Negative); GC Result Negative (Negative)
== END 2023-09-28 16:36 | disposition home or self-care (01) ==
LOC: LBN 16:35
PROVIDERS: Referring Provider Pediatrics; Visit Provider Pediatrics
DX: Z11.3 Encounter for screening for infections with a predominantly sexual mode of transmission (principal)
CPT/HCPCS: 87491; 87591

== ENCOUNTER 2024-10-04 17:39 | Emergency (ER) | payer SELFPAY ==
[2024-10-04] VITALS (24 sets, daily range): BP systolic 108–126; BP diastolic 69–89; PULSE 77–98; RESP 16; TEMP 36.7; O2SAT 93–100
--- NOTE | 2024-10-04 18:00 | DI.CT_ITS ---
Exam(s) CT ABDOMEN PELVIS W EXAM: CT ABDOMEN PELVIS W CLINICAL HISTORY: left sided abdominal pain. TECHNIQUE: Imaging Protocol: Axial computed tomography images with coronal and sagittal reformatted images were created and reviewed CONTRAST MATERIAL: Intravenous: Omnipaque 350 Contrast volume:100 ml Oral: no COMPARISON: No exams were available for comparison FINDINGS: ABDOMEN and PELVIS: Exam mildly limited by lack of intra-abdominal fat and lack of oral contrast. Lung Bases: No acute findings. Liver: Normal density. No suspicious mass. Gallbladder and biliary tract: No radiodense calculus. No wall thickening or pericholecystic fluid. No biliary dilation. Pancreas: Normal density. No abnormal calcifications or inflammatory process. No evidence of mass. Spleen: Normal. Kidneys: Normal size, contour and axis. No radiodense stones. No obstructive uropathy. No suspicious masses seen. Adrenal glands: No masses seen. Vasculature: Abdominal aorta non-dilated. Soft tissues: Unremarkable. Bladder: No gross wall thickening. No calculi.No focal mass. Bowel: No obstruction. No bowel wall thickening. No evidence of appendicitis. Peritoneal cavity: No ascites. No focal collection. No mesenteric inflammatory response. No free air . Bones: Unremarkable for age. Reproductive organs: Unremarkable. Lymph nodes: No pathologically enlarged lymph nodes. IMPRESSION:: No acute abnormality in the abdomen or pelvis. RADIATION DOSE DELIVERED: Total DLP DATA REPOSITORY: All CT scans at this facility are submitted to the National Radiology Data Registry (NRDR) Dose Index Registry (DIR) with the [employer] (A[employer]). RADIATION OPTIMIZATION: All CT scans at this facility use at least one of these dose optimization te chniques: automated exposure control; mA and/or kV adjustment per patient size (includes targeted exa ms where dose is matched to clinical indication); or iterative reconstruction.
[2024-10-04 18:30] LABS: Abs Immature Grans 0.03 10^3/uL (0.0-0.06); Absolute Basophil Count 0.01 10^3/uL (0.0-0.2); Absolute Eosinophil Count 0.02 10^3/uL (0.0-0.7); Absolute Lymphocyte Count 1.13 10^3/uL (1.2-3.4); Absolute Monocyte Count 1.46 10^3/uL (0.1-0.8); Absolute Neutrophil Count 5.89 10^3/uL (1.2-6.7); Basophils % 0.1 %; Eosinophils % 0.2 %; HCT 43.9 % (40.0-50.0); Immature Grans % 0.4 %; Lymphocytes % 13.2 %; MCH 31.1 pg (27.0-33.0); MCHC 34.2 % (32.0-36.0); MCV 91 fL (80-95); MPV 9.4 fL (8.0-11.0); Monocytes % 17.1 %; Platelet Count 144 10^3/uL (130-400); RBC 4.82 10^6/uL (4.36-5.78); RDW 12.2 % (11.8-14.1); RDW-SD 40.7 fL; WBC 8.54 10^3/uL (4.4-10.8)
[2024-10-04] MEDS: Normal Saline - Diluent 50 ML VIAL IJ (18:41)
[2024-10-04] MEDS: Omnipaque 350 MG/ML 100 ML BTL IJ (18:42)
[2024-10-04 18:44] LABS: ALT 13 U/L (16-63); AST 14 U/L (15-37); Albumin 4.3 g/dL (3.4-5.0); Alkaline Phosphatase 58 U/L (46-116); Anion Gap 7.4 mmol/L (3-11); BUN 6 mg/dL (7-18); Bilirubin, Total 1.66 mg/dL (0.2-1.0); CO2 31.6 mmol/L (21.0-32.0); CREATININE 0.9 mg/dL (0.70-1.30); Calcium 9.1 mg/dL (8.5-10.1); Chloride 100 mmol/L (98-107); Estimated GFR 123.84 (mL/min/1.73m2); Glucose 98 mg/dL (74-106); Potassium 3.3 mmol/L (3.5-5.1); Sodium 139 mmol/L (136-145); Total Protein 7.9 g/dL (6.4-8.2)
--- NOTE | 2024-10-04 18:47 | W.ED.GENAD ---
Discharge Plan Disposition Patient Disposition: Home Condition: Good Discharge Details Chief Complaint: Abd Prob Clinical Impression: Abdominal cramping Primary Care Provider: Unknown,Unknown ED Provider: Nathan Browning Home Meds and New Rx's Prescriptions: No Action mometasone 0.1 % cream 1 applic topical BID PRN (Reason: skin irritation) Qty: 90 0RF Rx Instructions: Apply thin layer to inflamed, itchy areas twice daily as needed Probiotic 3 billion cell Capsule 1 cell PO DAILY Discharge Instructions Instructions: Abdominal Pain, Adult ED Additional Instructions: At this time your laboratory workup is returned very reassuring. Your CAT scan shows no evidence of colitis. Thankfully your stool is now formed. Please drink plenty of fluids, stick with a bland diet, and take a probiotic. If you do have a recurrence of your diarrhea, please bring in a sample in for further testing. If you notice any worsening of your symptoms, or any new symptoms such as vomiting, diarrhea, fever, chills, shortness of breath, chest pain, numbness, weakness, or fainting , please return immediately to the emergency department for reevaluation. Please follow up with your primary care provider as soon as possible for reassessment and reevaluation. As always, it was a pleasure participating in your medical care today. HPI General Date/Time Provider Initiated Documentation: 10/04/24 17:47. HPI Narrative: This is a pleasant 24-year-old male with a past medical history of previous C. difficile infection, family history of Crohn's disease, who presents today for evaluation of abdominal discomfort and diarrhea. Patient states that for the last 2 to 3 days he has had nausea vomiting and felt generally unwell. He was seen at [facility] recently, chest x-ray was unremarkable, and symptoms were suspicious for viral upper respiratory and gastroenteritis infection. He also had some swelling in his gums which was concerning for potential tooth infection/gum infection. He was started on clindamycin, and he took the first dose today. Today he had multiple episodes of diarrhea which is his first time this has happened during this illness. No blood. He also admits to notable left upper left lateral and left lower quadrant abdominal crampiness. He denies right-sided pain. He denies any fever or chills. No other complaints at this time. Related Data Home Medications ?Medication ?Instructions ?Recorded ?Confirmed lactobacillus combination no.4 3 1 cell PO DAILY 02/11/22 10/04/24 billion cell capsule (Probiotic) mometasone 0.1 % topical cream 1 applic topical BID PRN skin 09/28/23 10/04/24 irritation #90 grams Previous Rx's ?Medication ?Instructions ?Recorded mometasone 0.1 % topical cream 1 applic topical BID PRN skin 09/28/23 irritation #90 grams Allergies Allergy/AdvReac Type Severity Reaction Status Date / Time amoxicillin Allergy Intermediate Skin Rash Verified 10/04/24 17:48 General Stated Complaint: Abd Prob ASIA: 3 Exam Narrative Exam Narrative: 1.Const: Well-nourished, Well-developed, appearing stated age 2.Eyes: PERRL, no conjunctival injection, and symmetrical lids. 3.ENT: Atraumatic external nose and ears. Moist MM. Neck: Symmetric, trachea midline, No thyromegaly. 4.CVS: +S1/S2, Peripheral pulses 2+ and equal in all extremities. Brisk capillary refill in all extremities. 5.RESP: Unlabored respiratory effort. Clear to auscultation bilaterally. No wheezes rales or rhonchi 6.GI: Soft, nondistended, no guarding or rebound. Mild left sided abdominal tenderness. Negative heel strike test. No pain to McBurney's point, negative Whatley sign. 7.MSK: Normocephalic/Atraumatic, Extremities w/o deformity or ttp No cyanosis or clubbing, Normal movement of all extremities 8.Skin: Warm, Dry. No rashes or lesions. 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 Sensation grossly intact, no focal neurologic deficits. 10.Psych: (AAO) x3. Appropriate mood and affect Course Vital Signs Vital signs: Vital Signs Temperature 36.7 C 10/04/24 17:41 Pulse 98 H 10/04/24 17:41 Respiratory Rate 16 10/04/24 17:41 Blood Pressure 108/78 10/04/24 17:41 Pulse Oximetry 98 10/04/24 17:41 Temperature 36.7 C 10/04/24 18:08 Temperature Source Oral 10/04/24 18:08 Pulse 85 10/04/24 18:30 Respiratory Rate 16 10/04/24 18:08 Blood Pressure 119/86 10/04/24 18:30 Blood Pressure Mean 94 10/04/24 18:30 Blood Pressure Position Sitting 10/04/24 18:08 Pulse Oximetry 98 10/04/24 18:31 Oxygen Delivery Method Room Air 10/04/24 18:08 Pain Level 6 10/04/24 18:26 Lab/Test Results Lab/Test Results: Laboratory Tests Range/Units 10/04/24 18:22 WBC (4.4-10.8) 10^3/uL 8.54 RBC (4.36-5.78) 10^6/uL 4.82 Hgb (13.5-17.5) g/dL 15.0 Hct (40.0-50.0) % 43.9 MCV (80-95) fL 91 MCH (27.0-33.0) pg 31.1 MCHC (32.0-36.0) % 34.2 RDW (11.8-14.1) % 12.2 Plt Count (130-400) 10^3/uL 144 MPV (8.0-11.0) fL 9.4 Immature Gran % % 0.4 Neutrophils % % 69.0 Lymphocytes % % 13.2 Monocytes % % 17.1 Eosinophils % % 0.2 Basophils % % 0.1 Nucleated RBC % (0.0-0.3) % 0.0 Absolute Neutrophils (1.2-6.7) 10^3/uL 5.89 Absolute Lymphocytes (1.2-3.4) 10^3/uL 1.13 L Absolute Monocytes (0.1-0.8) 10^3/uL 1.46 H Absolute Eosinophils (0.0-0.7) 10^3/uL 0.02 Absolute Basophils (0.0-0.2) 10^3/uL 0.01 Medical Decision Making This is a pleasant 24-year-old male with a past medical history of previous C. difficile infection, family history of Crohn's disease, who presents today for evaluation of abdominal discomfort and diarrhea. Patient states that for the last 2 to 3 days he has had nausea vomiting and felt generally unwell. He was seen at [facility] recently, chest x-ray was unremarkable, and symptoms were suspicious for viral upper respiratory and gastroenteritis infection. He also had some swelling in his gums which was concerning for potential tooth infection/gum infection. He was started on clindamycin, and he took the first dose today. Today he had multiple episodes of diarrhea which is his first time this has happened during this illness. No blood. He also admits to notable left upper left lateral and left lower quadrant abdominal crampiness. He denies right-sided pain. He denies any fever or chills. No other complaints at this time. Physical exam demonstrates well-appearing male, slightly dry mucous membranes, mild left-sided abdominal tenderness. Concern for potential colitis, C. difficile colitis, or just potential viral gastroenteritis. Symptoms appear inconsistent with pancreatitis as his vomiting has resolved and his nausea has resolved. No clinical evidence to suggest GI bleed. Will get a CT scan to evaluate for colitis, will test for C. difficile, will monitor closely and reassess. 9:33 PM Patient's laboratory workup has returned, no significant abnormalities. No white count or bandemia. Electrolytes stable, potassium minimally low at 3.3. Bilirubin was mildly elevated at 1.6, however he has no transaminitis. And in the past his bili has been up. He has no jaundice, no right upper quadrant tenderness to suggest acute cholecystitis, no other abnormality otherwise. CT scan shows no evidence of acute cholecystitis, or other acute abnormality. No biliary ductal dilatation, no wall thickening or pericholecystic fluid. Patient has not had any diarrhea here, he did have 1 solid bowel movement with formed stool, and no evidence of diarrhea or C. difficile for that matter. Lab would not take the sample for C. difficile testing as it was formed stool. Patient otherwise remained stable. He will be discharged home. Dose of Bentyl was given here. Recommend probiotics, soft diet, high-fiber diet, and plenty of fluids. Discussed red flags for which to return. I have extensively reviewed the treatment plan and discharge instructions with the patient. I have addressed all patient concerns at this time. The patient was made aware of what symptoms to monitor for that would warrant a return to the emergency department. Discussed the plan with the patient, they demonstrate verbal understanding and agreement with our assessment and plan at this time. The documentation in this chart was dictated using [employer] dictation software. Please excuse any dictation errors. FINDINGS: ABDOMEN and PELVIS: Exam mildly limited by lack of intra-abdominal fat and lack of oral contrast. Lung Bases: No acute findings. Liver: Normal density. No suspicious mass. Gallbladder and biliary tract: No radiodense calculus. No wall thickening or pericholecystic fluid. No biliary dilation. Pancreas: Normal density. No abnormal calcifications or inflammatory process. No evidence of mass. Spleen: Normal. Kidneys: Normal size, contour and axis. No radiodense stones. No obstructive uropathy. No suspicious masses seen. Adrenal glands: No masses seen. Vasculature: Abdominal aorta non-dilated. Soft tissues: Unremarkable. Bladder: No gross wall thickening. No calculi.No focal mass. Bowel: No obstruction. No bowel wall thickening. No evidence of appendicitis. Peritoneal cavity: No ascites. No focal collection. No mesenteric inflammatory response. No free air. Bones: Unremarkable for age. Reproductive organs: Unremarkable. Lymph nodes: No pathologically enlarged lymph nodes. IMPRESSION:: No acute abnormality in the abdomen or pelvis. 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) hospitalized 02/12/22; concerns for infectious vs inflammatory bowel disease; possible infectious in addition to inflammatory bowel disease- awaiting pathology from colonoscopy from 02/13/22; referral placed for GI evaluation at [facility] Medical History ADHD (attention deficit hyperactivity disorder) On no medication Autism Chronic pain syndrome Evaluation by [facility] physical therapy- exam, history and limitations consistent with chronic pain or fibromyalgia syndrome (08/04/21) Family history of Crohn's disease Foot pain Noted overpronation of the ankles; joint laxity of knees and ankles; questioning leg length abnormality- refer to PT at [facility] Learning difficulty (08/16/12) Graduated from [employer] in spring 2020 and had an IEP throughout his education Soft tissue mass Medial aspect of left knee-per MRI osteochondroma- repeat MRI in one year Well adult health check Surgical History Hx of wisdom tooth extraction Family History GRANDPARENT Anxiety Depression OTHER RELATIVE Cancer Asthma Social History Smoking/Tobacco Use Status: Never Smoking risk assessment performed?: Yes Alcohol Intake: never Drug use: Never Substance use type: does not use Household members: family Education Level: other Details: working for [employer] Pets and animals: Yes (1 dog) Pets and animals: dog(s) Current gender identity: male Seatbelt use: always Helmet use: Yes Helmet use: always Fire extinguisher in home: Yes Carbon monox detector in home: Yes Firearms in home: Yes Firearms unloaded and locked: Yes Do you feel safe at home: Yes Do you feel safe in your relationship?: Yes
[2024-10-04] MEDS: Lactated Ringers 1,000 ML 1000 ML IV (19:13)
[2024-10-04] MEDS: Dicyclomine 20 MG TAB PO (21:36)
--- NOTE | 2024-10-04 21:55 | NUR.NOTE ---
Patient given an outpatient lab slip for stool sample to be collected at home. Nursing Note:
--- OUTSIDE RECORDS SUMMARY | 2024-10-04 22:13 | XMS_ITS | Continuity of Care Document ---
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) - Discharge Disposition: Home or Self Care Attending Physician: Carlton Burch MD Admitting Physician: Carlton Burch MD Referring Physician: Nathan Garcia MD Allergies, Adverse Reactions, Alerts Substance Reaction Severity Status amoxicillin Skin rash Moderate Active Assessment and Plan Future Appointments Functional Status 12/14/22 Anti-Embolism Device Activity: Applied Anti-Embolism Site Condition: No complic ations 12/14/22 Family Member Travel History No recent t ravel Recent Travel History No recent travel Other exposure to Infectious Disease Non e Medications !-Cisco 5 mg-325 mg oral tablet 1 tab, Oral, every 6 hr, PRN as needed for pain, for post op pain, # 12 tab, 0 Refill(s), Pharmacy:[id number], 183, cm, 12/14/22 7:43:00 EDT, Height/Length Dosing, 65.2, kg, 12/14/22 7:43:00 EDT, Weight Dosing Start Date: 12/14/22 Status: Ordered lactobacillus acidophilus and bulgaricus oral granule 0 Refill(s) Start Date: 11/19/22 Status: Ordered mometasone 0.1% topical cream 0 Refill(s) Start Date: 11/19/22 Status: Ordered pseudoephedrine 120 mg oral tablet, extended release 0 Refill(s) Start Date: 11/19/22 Status: Ordered Problem List Condition Confirmation Course Effective Dates Status Health St atus Informant ADHD Confirmed Active Autism Confirmed Active Osteochondroma Confirmed Active Knee pain Confirmed Active Procedures Procedure Date Related Diagnosis Body Site Status Rem. impacted teeth 1 01/25/21 Com pleted 1[facility] Vital Signs Most recent to oldest [Reference Range]: 1 2 3 Temperature Oral [35.8-37.3 Deg C] 37 Deg C (12/14/22 7:13 AM) Temperature Temporal Artery [36-38 Deg C] 36.2 Deg C (12/14/22 12:10 PM) 36.1 Deg C (12/14/22 10:19 AM) 36.1 Deg C (12/14/22 9:48 AM) Temperature Temporal Artery (DegF) [97.3-100 Deg F] 97.16 Deg F *LOW* (12/14/22 12:10 PM) 96.98 Deg F *LOW* (12/14/22 10:19 AM) Peripheral Pulse Rate [60-100 bpm] 57 bpm *LOW* (12/14/22 12:15 PM) 68 bpm (12/14/22 12:10 PM) 48 bpm *LOW* (12/14/22 11:35 AM) Heart Rate Monitored [60-100 bpm] 63 bpm (12/14/22 12:15 PM) 79 bpm (12/14/22 12:10 PM) 49 bpm *LOW* (12/14/22 11:35 AM) Respiratory Rate [12-24 br/min] 13 br/min (12/14/22 12:15 PM) 14 br/min (12/14/22 12:10 PM) 10 br/min *LOW* (12/14/22 11:35 AM) Blood Pressure [90-140/60-90 mmHg] 125/73mmHg (12/14/22 12:10 PM) 117/76mmHg (12/14/22 11:05 AM) 122/67mmHg (12/14/22 10:50 AM) Mean Arterial Pressure, Cuff [65-140 mmHg] 90 mmHg (12/14/22 12:10 PM) 90 mmHg (12/14/22 11:05 AM) 85 mmHg (12/14/22 10:50 AM) Weight 65.200 kg (12/14/22 7:13 AM) Weight Dosing 65.200 kg (12/14/22 7:13 AM) Weight Estimated 61.00 kg (12/10/22 11:11 AM) Height 183.000 cm (12/14/22 7:13 AM) Height/Length Dosing 183.000 cm (12/14/22 7:13 AM) Body Mass Index 19.470 kg/m2 (12/14/22 7:13 AM) Social History Social History Type Response Tobacco Never tobacco user T obacco Use:. Sex Male Discharge instructions * Kylah Forbes: PERFORM Event Display: Discharge Instructions Authored Date: [id number] TY IZQUIERDO :2000 Age:22 years Sex:Male Visit Date:12/14/2022 Primary Care Physician: Nathan Garcia MD Hospital Discharge Instructions We would like to thank you for allowing us to assist you with your healthcare needs. The following includes patient education materials and information regarding your injury/illness. After you leave the hospital, you may get your health information including your test results, physician notes and discharge information by accessing your Patient Portal. Your Next Steps Instructions From Your Care Team Orthopedic Surgery Discharge Instructions keep dressing on for 7 days then ok to remove anc cover with island dressing given from hospital orlarge band aid ok to take shower after 7 days and dressing down but do not soak incison WBAT ok for knee ROM ?? Pain Control ?Take your pain relief medication when discomfort first begins. ?Can use stool softener while taking the narcotic to avoid problems with constipation. ?It is okay to start dket-hek-keaabgi Naproxen or Ibuprofen??immediately ?? Call your doctor if you: ?Develop a fever over 101 degrees. ?Have increased redness, warmth, discharge, swelling, or hardness around the operative site. ?Circulation changes such as tingling, numbness or your fingers/toes appear blue or white. ?Your pain is not adequately controlled, despite taking your pain medication routinely. ?? On the day of surgery, or while taking narcotic pain medication: No driving, operating power equipment,?? drinking alcohol,?? or taking mood altering drugs? Apply warm, moist compress to IV site if sore or red, for 20 minutes, 4 times a day, for 2-3 days.?? Call your doctor if IV site soreness or redness persists. In the event of any problems after surgery, contact your doctor or the Emergency Room @ . Ortho Office: [phone]?? Scheduled Future Appointments Tuesday 10:00 AM EDT ?? With: Carlton Burch MD Where: [facility] [address] [place] [address], [address] [place] [address] Status: Confirmed Medications What How Much When Instructions Next Dose New HYDROcodone-acetaminophen (!-Cisco 5 mg-325 mg oral tablet) 1 tab Oral (given by mouth) Every 6 hours as needed for as needed for pain for post op pain ?? Pickup at [id number] Unchanged lactobacillus acidophilus and bulgaricus (lactobacillus acidophilus and bulgaricus oral granule) Unchanged mometasone topical (mometasone 0.1% topical cream) Unchanged pseudoephedrine (pseudoephedrine 120 mg oral tablet, extended release) Pharmacy Information [id number]: [address] [place], [place] [id number] [phone] Your Summary Your Care Team Admitting Physician - Carlton Burch MD Attending Physician - Carlton Burch MD Primary Care Physician - Nathan Garcia MD Referring Physician - Nathan Garcia MD Problems Ongoing - Any problem that you are currently receiving treatment for. ADHD Autism Knee pain Osteochondroma Historical - Any problem that you are no longer receiving treatment for. Patient Name:TY IZQUIERDO I have received this information and my questions have been answered. Patient/Surgery Manager Name: Patient/Surgery Manager Signature: Relationship to Patient: Witness Name/Signature: Date: Electronically Signed on: 12/14/2022 10:48 EDTSigned by:GRANT EKG study * Amrita Salcedo L: PERFORM Event Display: Telemetry Strips Authored Date: [id number] History and physical note * Mariluz Potter: PERFORM Event Display: History and Physical Authored Date: [id number] TY IZQUIERDO :2000 Age:22 years Sex:Male Primary Care Physician: Nathan Garcia MD Visit Date:??12/08/2022 [1] Chief Complaint L knee pain ?? History of Present Illness Patient is a 22-year-old??male who is here for left knee evaluation.?? Patient was diagnosed with an osteochondroma??with an MRI being done August 14, 2021??consistent with this diagnosis.?? He has??found that??intermittently he will have pain??because of the lesion.?? He is here to discuss possible removal.?? 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 ?? Physical Exam ?Vitals & Measurements ?HT:??181.61??cm?? WT:??63.37??kg?? BMI:??19.21?? BSA:??1.79?? Patient seen and he is in no acute distress.?? In supine position??when we palpate??just??superior??and medial??to the patella??we can feel??a hard bony lesion.?? Otherwise patient has full extensionof the knee full flexion with the knee being stable. ?? X-rays were reviewed left knee??from November 11, 2022 and we could see??an osteochondroma??characterized by a stalk??continuous with the??medullary canal of the distal femur??along the medial??supracondylar??flare??of the left distal femur.?? An MRI??dated August 14, 2021??confirms??the lesion??with the cartilage??cap showing no worrisome characteristics. ?? Assessment/Plan 1.??Knee pain??M25.569 ?Patient has a??osteochondroma??along the medial aspect of the left distal femur.?? I explained that we can certainly remove it??if it was causing some local??soft tissue irritation.?? He will speak??to his??parents??about this??and if he wants it removed he will call us back.?? I did tell him that if he did not have it removed??but in the future felt that it was enlarging??he would need a repeat MR??to assess??for any growth in the??cartilage cap. Problem List/Past Medical History Ongoing ?ADHD ??Autism ??Disease caused by 2019 novel coronavirus ??Knee pain ??Osteochondroma Historical ?No qualifying data Medications ??lactobacillus acidophilus and bulgaricus oral granule ??mometasone 0.1% topical cream ??pseudoephedrine 120 mg oral tablet, extended release Allergies amoxicillin??(Skin rash) [2] [1]??Office Visit Note; Carlton Burch MD 12/08/2022 11:22 EST [2]??Office Visit Note; Carlton Burch MD 12/08/2022 11:22 EST Electronically Signed on 12/10/22 01:02 PM Mariluz Potter Carlton Burch MD Patient Care team information Care Team Personnel Name: Nathan Garcia MD Position: No Access Member Role: Primary Care Physician Address: Address: [place] [address]- Care Team Related Persons Name: GERSON IZQUIERDO Address: [address] [place], [id number]
--- OUTSIDE RECORDS SUMMARY | 2024-10-04 22:13 | XMS_ITS | Encounter Summary ---
Author Organization [facility] Address [address] [place] [address] Care Team Providers Care Herd Tester Name Role Phone Radha Boles MD Primary Care Provider [phone] Encounter Details Date Type Department Care Team (Late st Contact Info) Description 02/12/2022 Lab Requisition [facility] Pathology & Laboratory Medicine - [address] [address] Outr Resulting Lab, Provider Social History Tobacco Use Types Packs/Day Years Used Date Smoking Tobacco: Never Assessed Interpersonal Safety Answer Date Record ed Physically Hurt Never 08/26/2020 Verbally Threaten Not on file 08/26/2020 Sex and Gender Information Value Date Recorded Sex Assigned at Not on file Legal Sex Male 16:20 EDT Gender Identity Not on file Sexual Orientation Not on file documented as of this encounter Plan of Treatment Not on file documented as of this encounter Procedures Procedure Name Priority Date/Time Associated Diagnosis Comments FECAL BACTERIAL PATHOGENS BY PCR Routine 02/11/2022 22:20 EDT OVA/PARASITE EXAM Routine 02/11/2022 22: 20 EDT documented in this encounter Results * FECAL BACTERIAL PATHOGENS BY PCR (02/11/2022 22:20 EDT) Salmonella PCR Negative Negative 02/12/2022 21:50 EDT [facility] Shigella/Enteroin vasive E. coli Negative Negative 02/12/2022 21:50 EDT [facility] HN LAB CAMPYLOBACTER PCR Negative Negative 02/12/2022 21:50 EDT [facility] Shiga Toxin PCR Negative Negative 21:50 EDT [facility] Feces SPECIMEN FROM RECTUM / Unknown 02/11/2022 22:20 EDT 02/12/2022 17:51 EDT us Provider Outr Resulting Lab MICROBIOLOGY - GENER AL ORDERABLES Final Result Performing Organization Address [facility] Co de Phone Number [facility] [address] [place] [address] * OVA/PARASITE EXAM (02/11/2022 22:20 EDT) Parasite No ova and parasites seen. 02/15/2022 15:12 EDT [facility] Feces SPECIMEN FROM RECTUM / Unknown 02/11/2022 22:20 EDT 02/12/2022 17:51 EDT Narrative [facility] - 02/15/2022 15:12 EDT (If Cryptosporidium, Cyclospora, or Microsporidium are suspected, specific tests must be requested.) Single negative specimen does not rule out the possibility of a parasitic infection. us Provider Outr Resulting Lab MICROBIOLOGY - GENER AL ORDERABLES Final Result Performing Organization Address [facility] Co de Phone Number [facility] [address] [place] [address] documented in this encounter Visit Diagnoses Not on filedocumented in this encounter Care Teams Herd Tester Relationship Specialty Start Date End Date [place] [address] PCP - General Pediatrics - Primary Care 01/01/22 documented as of this encounter
--- OUTSIDE RECORDS SUMMARY | 2024-10-04 22:13 | XMS_ITS | Encounter Summary ---
Author Organization [facility] Address [address] [place] [address] Care Team Providers Care Hospital Administrative Assistant Name Role Phone Radha Boles MD Primary Care Provider [phone] Encounter Details Date Type Department Care Team (Late st Contact Info) Description 12/14/2022 Lab Requisition [facility] Pathology & Laboratory Medicine - [address] [address] Carlton Burch MD [address] [place] [address],[address] [place], [place] [id number] Encounter for other general examination Social History Tobacco Use Types Packs/Day Years [...] Procedure Name Priority Date/Time Associated Diagnosis Comments SURGICAL PATHOLOGY Today 12/14/2022 9:29 EDT documented in this encounter Results * SURGICAL PATHOLOGY (12/14/2022 9:29 EDT) Note to Patient The following pathology results have been interpreted by your pathologist and may be available to you before your health provider has had the opportunity to review them. Please allow time for your provider to receive these results and explore management options, if applicable. 12/21/2022 11:28 EDT [facility] Final Diagnosis A. BONE, DISTAL FEMUR, LEFT, ? OSTEOCHONDROMA? , EXCISION: - Osteochondroma. 12/21/2022 11:28 [facility] Diagnosis Comment History morphologic evaluation of the specimen reveals cartilage cap with growth plate like architecture and underlying medullary and cortical bone stalk. These features are consistent with an osteochondroma. 12/21/2022 11:28 [facility] Attestation There was significant resident/fellow involvement in the diagnostic evaluation of this case. By the signature below, the attending physician certifies that they have personally conducted a gross and/or microscopic examination of the described specimens and rendered or confirmed the above diagnosis. 12/21/2022 11:28 [facility] at 1128 Clinical History Left distal femur osteochondroma 12/21/2022 11:28 [facility] Gross Description A. Received in formalin labelled with proper patient identification (initials B, W) and left distal femur osteochondroma is a 2.0 x 1.5 x 1.2 cm polypoid portion of bone. The bone resection margin is smooth and grossly viable. The opposite side has a smooth, cartilaginous stuart-white cap. Sectioning reveals stuart-white to slightly guerrier cut surfaces. One sales representative door to door section is submitted in A1, following molecular decalcification. LIZBETH HANSON(ASCP) 12/15/2022 12:02 12/21/2022 11:28 [facility] Resident/Cosme w: Holden Delgadillo MD 12/21/2022 11:28 [facility] Performing Lab [facility] 12/21/2022 11:28 [facility] Scanned Images 12/21/2022 11:28 [facility] Tissue SPECIMEN FROM BONE / Unknown 12/14/2022 9:29 EDT 12/15/2022 8:30 EDT us Carlton Burch MD PATHOLOGY ORDERABLES Final Result [facility] [address] [place] [address] documented in this encounter Visit Diagnoses Diagnosis Encounter for other general examination documented in this encounter Care Teams Hospital Administrative Assistant Relationship Specialty Start Date End Date Radha Boles MD [address] [place] [address] [facility] [place] [address] PCP - General Pediatrics - Primary Care 01/01/22 documented as of this encounter
--- OUTSIDE RECORDS SUMMARY | 2024-10-04 22:13 | XMS_ITS | Encounter Summary ---
Author Organization [facility] Address [address] [place] [address] Care Team Providers Care Ore Miner Blasting Name Role Phone Radha Boles MD Primary Care Provider [phone] Encounter Details Date Type Department Care Team (Late st Contact Info) Description 09/29/2023 Lab Requisition [facility] Pathology & Laboratory Medicine - [address] [address] Outr Resulting Lab, Provider Social [...] Procedure Name Priority Date/Time Associated Diagnosis Comments CHLAMYDIA/N. GONORRHOEAE AMPLIFIED NUCLEIC ACID Routine 09/28/2023 16:35 EST documented in this encounter Results * CHLAMYDIA/N. GONORRHOEAE AMPLIFIED RNA (09/28/2023 16:35 EST) Neisseria gonorrhoeae Result Negative Negative 09/30/2023 16:25 EST [facility] Chlamydia trachomatis Result Negative Negative 09/30/2023 16:25 EST [facility] Urine URINE / Unknown 09/28/2023 1 6:35 EST 09/29/2023 16:28 EST us Provider Outr Resulting Lab MICROBIOLOGY - GENER AL ORDERABLES Final Result [facility] [address] [place] [address] documented in this encounter Visit Diagnoses Not on filedocumented in this encounter Care Teams Ore Miner Blasting Relationship Specialty Start Date End Date Radha Boles MD [address] [place] [address] [place] [address] PCP - General Pediatrics - Primary Care 01/01/22 documented as of this encounter
--- OUTSIDE RECORDS SUMMARY | 2024-10-04 22:13 | XMS_ITS | Encounter Summary ---
Author Organization [facility] Address [address] [place] [address] Care Team Providers Care Key Filer Name Role Phone Radha Boles MD Primary Care Provider Encounter Details Date Type Department Care Team (Late st Contact Info) Description 02/12/2022 Lab Requisition [facility] Pathology & Laboratory Medicine - [address] [address] Abigail Hazel, DO [address] [place], [place] [id number] Encounter for other general examination Social History [...] Date/Time Associated Diagnosis Comments SURGICAL PATHOLOGY Today 02/12/2022 14 :50 EDT Encounter for other general examination documented in this encounter Results * SURGICAL PATHOLOGY (02/12/2022 14:50 EDT) Note to Patient The following pathology results have been interpreted by your pathologist and may be available to you before your health provider has had the opportunity to review them. Please allow time for your provider to receive these results and explore management options, if applicable. 02/18/2022 9:06 EDT [facility] Final Diagnosis A. COLON, 50CM, BIOPSY: - Focally active colitis with overlying erosions. See comment. B. COLON, 20CM, BIOPSY: - Focally active colitis with overlying erosions. See comment. C. COLON, RECTUM, BIOPSY: - Focally active colitis with overlying erosions. See comment. 02/18/2022 9:06 [facility] Diagnosis Comment Nonspecific findings. The differential diagnoses include infection, drugs (I.e. NSAIDs), ischemic colitis and early onset inflammatory bowel disease. Marketing Support Assistant slides of this case were reviewed at the gastrointestinal/[facility] intradepartmental consultation conference. 02/18/2022 9:06 [facility] Attestation By the signature below, the attending physician certifies that they have 1) personally conducted a gross and/or microscopic examination of the described specimen(s), and/or personally interpreted the results of laboratory testing of the described specimen(s), and 2) personally rendered or confirmed the above diagnosis. 02/18/2022 9:06 [facility] at 0906 Clinical History Bloody diarrhea, nausea, abdominal pain, anemia, abnormal CT, F/H Crohn's, weight loss 02/18/2022 9:06 [facility] Gross Description A. Received in formalin labelled with proper patient identification (initials B, W) and Bx splenic flexure @ 50 cm are two stuart tissues, 0.3 x 0.2 x 0.1 cm and 0.5 x 0.3 x 0.2 cm. Entirely submitted in A1. B. Received in formalin labelled with proper patient identification (initials B, W) and Bx colon 20 cm is a pale tsuart tissue, 0.3 x 0.2 x 0.1 cm. Entirely submitted in B1. C. Received in formalin labelled with proper patient identification (initials B, W) and Bx rectum is a stuart irregular tissue, 0.4 x 0.2 x 0.1 cm. Entirely submitted in C1. LIZBETH RUANO(ASCP) 02/15/2022 8:13 02/18/2022 9:06 [facility] Performing Lab [facility] 02/18/2022 9:06 [facility] Scanned Images 02/18/2022 9:06 [facility] Tissue SPECIMEN FROM RECTUM / Unknown 02/12/2022 14:50 EDT 02/12/2022 22:00 EDT Tissue specimen (specimen) COLON STRUCTURE / Unknown 02/12/2022 14:50 EDT 02/12/2022 22:00 EDT Tissue specimen (specimen) SPECIMEN FROM RECTUM / Unknown 02/12/2022 14:50 EDT 02/12/2022 22:00 EDT us Abigail Hazel DO PATHOLOGY ORDERABLES Final Re sult [facility] [address] [place] [address] documented in this encounter Visit Diagnoses Diagnosis Encounter for other general examination documented in this encounter Care Teams Key Filer Relationship Specialty Start Date End Date Radha Boles MD [address] [place] [address] PCP - General Pediatrics - Primary Care 01/01/22 documented as of this encounter
--- OUTSIDE RECORDS SUMMARY | 2024-10-04 22:13 | XMS_ITS | Encounter Summary ---
Author Organization [facility] Address [address] [place] [address] Care Team Providers Care Gre Tutor Name Role Phone Radha Boles MD Primary Care Provider [phone] Encounter Details Date Type Department Care Team (Late st Contact Info) Description 02/12/2022 Lab Requisition [facility] Pathology & Laboratory Medicine - [address] [address] Outr Resulting Lab, Provider Social [...] Procedure Name Priority Date/Time Associated Diagnosis Comments ANCA, IFA Routine 02/12/2022 9:03 EDT documented in this encounter Results * ANCA, IFA (02/12/2022 9:03 EDT) Lab ANCA Interpretation Negative Negative 02/15/2022 15:47 EDT [facility] Comment: No titer performed, ANCA Screen is negative. Results were obtained with the INOVA NOVA Lite ANCA kit by indirect immunofluorescence. Blood VENOUS BLOOD / Unknown 02/12/2022 9:03 EDT 02/12/2022 17:17 EDT us Provider Outr Resulting Lab IMMUNOLOGY AND SEROL OGY ORDERABLES Final Result [facility] [address] [place] [address] documented in this encounter Visit Diagnoses Not on filedocumented in this encounter Care Teams Gre Tutor Relationship Specialty Start Date End Date Radha Boles MD [address] [place] [address] PCP - General Pediatrics - Primary Care 01/01/22 documented as of this encounter
--- OUTSIDE RECORDS SUMMARY | 2024-10-04 22:13 | XMS_ITS | Encounter Summary ---
Author Organization [facility] Address [address] [place] [address] Care Team Providers Care Pocket Closer Name Role Phone Radha Boles MD Primary Care Provider [phone] Encounter Details Date Type Department Care Team (Late st Contact Info) Description 07/27/2022 Lab Requisition [facility] Pathology & Laboratory Medicine - [facility] [address] [place], [place] [address] Outr Resulting Lab, Provider Social History Tobacco [...] Procedure Name Priority Date/Time Associated Diagnosis Comments ZZCOVID-19 TEST [facility] PCR Today 07/27/2022 13:00 EDT COVID-19 TESTING Routine 07/27/2022 13:0 0 EDT documented in this encounter Results * COVID-19 TEST [facility] PCR (07/27/2022 13:00 EDT) Swab 07/27/2022 13:0 0 EDT 07/28/2022 16:20 EDT us Provider Outr Resulting Lab MICROBIOLOGY - GENER AL ORDERABLES Final Result [facility] [address] [place] [address] * COVID-19 TESTING (07/27/2022 13:00 EDT) COVID-19 rt-PCR Result Negative Negative 07/29/2022 11:18 EDT [facility] Comment: This test has not been FDA cleared or approved. This test has been authorized by FDA under an EUA for use by authorized laboratories. This test has been authorized only for detection of nucleic acid from 2019-nCoV, not for any other viruses or pathogens. This test is only authorized for the duration of the declaration that circumstances exist justifying the authorization of emergency use of in vitro diagnostic tests for detection and/or diagnosis of 2019-nCoV under section 564(b)(1) of Act, 21 U.S.C ?? 360bbb-3(b) (1), unless the authorization is terminated or revoked sooner. Negative results do not preclude 2019-nCoV infection and should not be used as the sole basis for treatment or other patient management decisions. Negative results must be combined with clinical observations, patient history, and epidemiological information. Testing was performed using the bruna SARS-CoV-2 assay ([employer] on the Bruna 6800 System Performing Lab Bruna [address] [facility] 07/29/2022 11:18 EDT [facility] Swab 07/27/2022 13:0 0 EDT 07/28/2022 16:20 EDT us Provider Outr Resulting Lab MICROBIOLOGY - GENER AL ORDERABLES Final Result Performing Organization Address City/State/[facility] Co de Phone Number [facility] [address] [place] [address] documented in this encounter Visit Diagnoses Not on filedocumented in this encounter Care Teams Pocket Closer Relationship Specialty Start Date End Date Radha Boles MD [address] [place] [address] [place] [address] PCP - General Pediatrics - Primary Care 01/01/22 documented as of this encounter
--- OUTSIDE RECORDS SUMMARY | 2024-10-04 22:13 | XMS_ITS | Encounter Summary ---
Author Organization [facility] Address [address] [place] [address] Care Team Providers Care Pie Filling Mixer Name Role Phone Radha Boles MD Primary Care Provider [phone] Encounter Details Date Type Department Care Team (Late st Contact Info) Description 09/15/2021 Lab Requisition [facility] Pathology & Laboratory Medicine - [address] [address] Outr Resulting Lab, Provider Social History Tobacco [...] Comments ZZCOVID-19 TEST [facility] PCR Today 09/14/2021 15:45 EST COVID-19 TESTING Routine 09/14/2021 15:4 5 EST documented in this encounter Results * COVID-19 TEST [facility] PCR (09/14/2021 15:45 EST) Swab 09/14/2021 15:4 5 EST 09/15/2021 17:22 EST us Provider Outr Resulting Lab MICROBIOLOGY - GENER AL ORDERABLES Final Result [facility] [address] [place] [address] * COVID-19 TESTING (09/14/2021 15:45 EST) COVID-19 rt-PCR Result Negative Negative 09/16/2021 15:37 EST [facility] Comment: This test has not [...] clinical observations, patient history, and epidemiological information. This test was developed and its performance characteristics determined by [facility]. It has not been cleared or approved by the US Food and Drug Administration. FDA does not require this test to go through premarket FDA review. This test is used for clinical purposes. It should not be regarded as investigational or for research. This laboratory is certified under the Clinical Laboratory Improvement Amendments (CLIA) as qualified to perform high complexity clinical laboratory testing. This test is based on the [facility] COVID-19 Emergency Use Authorization (EUA) assay, with minor modification as defined by the FDA Performed on the [employer] 7 Flex RT-PCR System. Performing Lab [facility] 09/16/2021 15:37 EST [facility] Swab 09/14/2021 15:4 5 EST 09/15/2021 17:22 EST us Provider Outr Resulting Lab MICROBIOLOGY - GENER AL ORDERABLES Final Result [facility] [address] [place] [address] documented in this encounter Visit Diagnoses Not on filedocumented in this encounter Care Teams Pie Filling Mixer Relationship Specialty Start Date End Date Radha Boles MD [address] [place] [address] PCP - General Pediatrics - Primary Care 01/01/22 documented as of this encounter
--- OUTSIDE RECORDS SUMMARY | 2024-10-04 22:13 | XMS_ITS | Referral Summary ---
Author Organization [facility] Address [address] [place] [address] Care Team Providers Care Engraver Letter Name Role Phone Radha Boles MD Primary Care Provider [phone] Social History Tobacco Use Types Packs/Day Years Used Date Smoking Tobacco: Never Assessed Interpersonal Safety Answer Date Record ed Physically Hurt Never 08/26/2020 Verbally Threaten Not on file 08/26/2020 Sex and Gender Information Value Date Recorded Sex Assigned at Not on file Legal Sex Male 16:20 EDT Gender Identity Not on file Sexual Orientation Not on file Plan of Treatment Not on file Insurance MEDICAID [place] Care Teams Engraver Letter Relationship Specialty Start Date End Date Radha Boles MD [address] [place] [address] PCP - General Pediatrics - Primary Care 01/01/22
--- OUTSIDE RECORDS SUMMARY | 2024-10-04 22:13 | XMS_ITS | Encounter Summary ---
Author Organization [facility] Address [address] [place] [address] Care Team Providers Care Neck Band Maker Name Role Phone Radha Boles MD Primary Care Provider [phone] Encounter Details Date Type Department Care Team (Late st Contact Info) Description 06/27/2023 Lab Requisition [facility] Pathology & Laboratory Medicine - [address] [address] Outr Resulting Lab, Provider Social [...] Comments CHLAMYDIA/N. GONORRHOEAE AMPLIFIED NUCLEIC ACID Routine 06/27/2023 10:27 EDT documented in this encounter Results * CHLAMYDIA/N. GONORRHOEAE AMPLIFIED RNA (06/27/2023 10:27 EDT) Neisseria gonorrhoeae Result Negative Negative 06/28/2023 15:[address] [facility] Chlamydia trachomatis Result Negative Negative 06/28/2023 15:[address] [facility] Urine URINE / Unknown 06/27/2023 1 0:27 EDT 06/28/2023 9:34 EDT us Provider Outr Resulting Lab MICROBIOLOGY - GENER AL ORDERABLES Final Result [facility] [address] [place] [address] documented in this encounter Visit Diagnoses Not on filedocumented in this encounter Care Teams Neck Band Maker Relationship Specialty Start Date End Date Radha Boles MD [address] [place] [address] PCP - General Pediatrics - Primary Care 01/01/22 documented as of this encounter
--- OUTSIDE RECORDS SUMMARY | 2024-10-04 22:13 | XMS_ITS | Continuity of Care Document ---
Author Organization [facility] Address [address] [place] [address] Care Team Providers Care Loading Shovel Oiler Name Role Phone Nathan Garcia Primary Care Physician Encounter [facility] Date(s): 08/30/22 - 08/30/[address] [address] Encounter Diagnosis Viral URI(Discharge Diagnosis) - 08/30/22 Discharge Disposition: Home or Self Care Attending Physician: Justina Travis MD Admitting Physician: Justina Travis MD Allergies, Adverse Reactions, Alerts Substance Reaction Severity Status amoxicillin Skin rash Moderate Active Functional Status 08/30/22 Other exposure to Infectious Disease Com munity exposure to COVID-19 within the last 14 days, COVID-19 Symptoms Present Problem List Condition Confirmation Course Effective Dates Status Health [facility] Informant Disease caused by 2019 novel coronavirus 1 Confirmed 05/18/22 Active 1Problem added by Rule (IC_COVID19_AUTO_PROBLEM) following SARS-CoV-2 (COVID-19) RNA (ID Now) from Nasopharyngeal Swab collected on 18-MAY-2022 18:40:00 EDT tested positive for COVID-19. Results Laboratory List Name Date SARS-CoV-2 (COVID-19)/Flu/RSV (GeneXpert ) 08/30/22 Most recent to oldest [Reference Range]: 1 Employed in healthcare? No *NA* (08/30/22 3:13 PM) Symptomatic as defined by CDC? No *NA* (08/30/22 3:13 PM) Hospitalized due to COVID-19? No *NA* (08/30/22 3:13 PM) In ICU? No *NA* (08/30/22 3:13 PM) Group care resident? No *NA* (08/30/22 3:13 PM) status? Not *NA* (08/30/22 3:13 PM) SARS-CoV-2(Covid19)PCR(GXpert COVFLURSV) [Negative] Negative (08/30/22 3:13 PM) Flu A (GXpert COVFLURSV) [Negative] Nega tive (08/30/22 3:13 PM) RSV (GXpert COVFLURSV) [Negative] Negati ve (08/30/22 3:13 PM) Flu B (GXpert COVFLURSV) [Negative] Nega tive (08/30/22 3:13 PM) Vital Signs Most recent to oldest [Reference Range]: 1 Temperature Temporal Artery [36-38 Deg C ] 35.9 Deg C *LOW* (08/30/22 2:55 PM) Peripheral Pulse Rate [60-100 bpm] 92 bp m (08/30/22 2:55 PM) Respiratory Rate [12-24 br/min] 20 br/mi n (08/30/22 2:55 PM) Blood Pressure [90-140/60-90 mmHg] 101/6 9mmHg (08/30/22 2:55 PM) Weight Dosing 61.00 kg (08/30/22 3:04 PM) Weight Estimated 61.00 kg (08/30/22 2:55 PM) Height/Length Dosing 185.000 cm (08/30/22 3:04 PM) Height/Length Estimated 185.000 cm (08/30/22 2:55 PM) Social History Social History Type Response Tobacco Never tobacco user T obacco Use:. Sex Male Hospital Discharge Instructions Patient Education 08/30/2022 16:06:32 Upper Respiratory Infection, Adult Upper Respiratory Infection, Adult An upper respiratory infection (URI) is a common viral infection of the nose, throat, and upper airpassages that lead to the lungs. The most common type of URI is the common cold. URIs usually get better on their own, without medical treatment. What are the causes? A URI is caused by a virus. You may catch a virus by: ??? Breathing in droplets from an infected person's cough or sneeze. ??? Touching something that has been exposed to the virus (contaminated) and then touching your mouth, nose, or eyes. What increases the risk? You are more likely to get a URI if: ??? You are very young or very old. ??? It is fernando or winter. ??? You have close contact with others, such as at a daycare, school, or health care facility. ??? You smoke. ??? You have long-term (chronic) heart or lung disease. ??? You have a weakened disease-fighting (immune) system. ??? You have nasal allergies or asthma. ??? You are experiencing a lot of stress. ??? You work in an area that has poor air circulation. ??? You have poor nutrition. What are the signs or symptoms? A URI usually involves some of the following symptoms: ??? Runny or stuffy (congested) nose. ??? Sneezing. ??? Cough. ??? Sore throat. ??? Headache. ??? Fatigue. ??? Fever. ??? Loss of appetite. ??? Pain in your forehead, behind your eyes, and over your cheekbones (sinus pain). ??? Muscle aches. ??? Redness or irritation of the eyes. ??? Pressure in the ears or face. How is this diagnosed? This condition may be diagnosed based on your medical history and symptoms, and a physical exam. Your health care provider may use a cotton swab to take a mucus sample from your nose (nasal swab). This sample can be tested to determine what virus is causing the illness. How is this treated? URIs usually get better on their own within 7???10 days. You can take steps at home to relieve yoursymptoms. Medicines cannot cure URIs, but your health care provider may recommend certain medicinesto help relieve symptoms, such as: ??? Abhd-rms-vxbkczr cold medicines. ??? Cough suppressants. Coughing is a type of defense against infection that helps to clear the respiratory system, so take these medicines only as recommended by your health care provider. ??? Fever-reducing medicines. Follow these instructions at home: Activity ??? Rest as needed. ??? If you have a fever, stay home from work or school until your fever is gone or until your health care provider says you are no longer contagious. Your health care provider may have you wear a face mask to prevent your infection from spreading. Relieving symptoms ??? Gargle with a salt-water mixture 3???4 times a day or as needed. To make a salt-water mixture, completely dissolve ?1 tsp of salt in 1 cup of warm water. ??? Use a cool-mist humidifier to add moisture to the air. This can help you breathe more easily. Eating and drinking ??? Drink enough fluid to keep your urine pale yellow. ??? Eat soups and other clear broths. General instructions ??? Take gsvt-zbm-tgmhtow and prescription medicines only as told by your health care provider. These include cold medicines, fever reducers, and cough suppressants. ??? Do not use any products that contain nicotine or tobacco, such as cigarettes and e-cigarettes. If you need help quitting, ask your health care provider. ??? Stay away from secondhand smoke. ??? Stay up to date on all immunizations, including the yearly (annual) flu vaccine. ??? Keep all follow-up visits as told by your health care provider. This is important. How to prevent the spread of infection to others ??? URIs can be passed from person to person (are contagious). To prevent the infection from spreading: ??? Wash your hands often with soap and water. If soap and water are not available, use hand complex commercial litigation paralegal. ??? Avoid touching your mouth, face, eyes, or nose. ??? Cough or sneeze into a tissue or your sleeve or elbow instead of into your hand or into the air. Contact a health care provider if: ??? You are getting worse instead of better. ??? You have a fever or chills. ??? Your mucus is brown or red. ??? You have yellow or brown discharge coming from your nose. ??? You have pain in your face, especially when you bend forward. ??? You have swollen neck glands. ??? You have pain while swallowing. ??? You have white areas in the back of your throat. Get help right away if: ??? You have shortness of breath that gets worse. ??? You have severe or persistent: ??? Headache. ??? Ear pain. ??? Sinus pain. ??? Chest pain. ??? You have chronic lung disease along with any of the following: ??? Wheezing. ??? Prolonged cough. ??? Coughing up blood. ??? A change in your usual mucus. ??? You have a stiff neck. ??? You have changes in your: ??? Vision. ??? Hearing. ??? Thinking. ??? Mood. Summary ??? An upper respiratory infection (URI) is a common infection of the nose, throat, and upper air passages that lead to the lungs. ??? A URI is caused by a virus. ??? URIs usually get better on their own within 7???10 days. ??? Medicines cannot cure URIs, but your health care provider may recommend certain medicines to help relieve symptoms. This information is not intended to replace advice given to you by your health care provider. Make sure you discuss any questions you have with your health care provider. Document Revised: 05/28/2021 Document Reviewed: 05/28/2021 Elsevier Patient Education ?? 2021 [employer] Follow Up Care 08/30/2022 14:55:26 With:Nathan Garcia MD Address: [address] When:1 month Physician Emergency department Note * Davin Colin MD: MODIFY, MODIFY, MODIFY, PERFORM Event Display: ED Note Physician Authored Date: [id number] TY IZQUIERDO :2000 Age:22 years Sex:Male Visit Date:08/30/2022 Primary Care Physician: Nathan Garcia MD Basic Information Time Seen: Davin Colin MD / 08/30/2022 15:41 Chief Complaint Yesterday sore throat, congestion, cough, sinus pain. Recent exposure to COVID. History Of Present Illness: Resents??to the emerged from complaining of sore throat congestion cough??and sinus pain. ??Patientreports that the??exposure to his father who tested positive for COVID.?? Is any shortness of breath Review of Systems: Constitutional: No fevers, chills, sweats Eye: No recent visual problems ENT: No ear pain, Respiratory: No shortness of breath, Cardiovascular: No Chest pain, palpitations, syncope Gastrointestinal: No nausea, vomiting, diarrhea Genitourinary: No hematuria Rudy/Lymph: Negative for bruising tendency, swollen lymph glands Endocrine: Negative for excessive thirst, excessive hunger Musculoskeletal: No back pain, neck pain, joint pain, muscle pain, decreased range of motion Integumentary: No rash, pruritus, abrasions Neurologic: Alert & oriented X 4 Psychiatric: No anxiety, depression Physical Exam Vitals & Measurements T:??35.9?C ??(Temporal Artery)?? HR:??92??(Peripheral)?? RR:??20?? BP:??101/69?? SpO2:??98%?? HT:??185.000??cm?? WT:??61.00??kg??(Estimated)?? Pain Score:??5?? O2 Therapy:??Room air?? General: Alert and oriented, well nourished, no acute distress. Eye: PERRL, EOMI, normal conjunctiva. HENT: Normocephalic, clear tympanic membranes, normal hearing, moist oral mucosa, no scleral icterus, no sinus tenderness. Neck: Supple, non-tender, no carotid bruits, no JVD, no lymphadenopathy. Lungs: Clear to auscultation and percussion, non-labored respiration. Heart: Normal rate, regular rhythm, no murmur, gallop or edema. Breast: No lumps, no bumps, no scars, normal nipples. Abdomen: Soft, non-tender, non-distended, normal bowel sounds, no masses. Musculoskeletal: Normal range of motion and strength, no tenderness or swelling. Skin: Skin is warm, dry and appropriate for ethnicity, no rashes or lesions. Neurologic: Awake, alert and oriented X4, CN II-XII intact. Psychiatric: Cooperative, appropriate mood and affect. Medical Decision Making: Patient with an upper respiratory infection who was exposed to COVID but this time his tests are completely negative he will be discharged home with supportive care Procedure No Qualifying Data Assessment/Plan 1.??Viral URI??J06.9 Orders: Discharge Patient, 08/30/22 17:06:00 EST Patient Education Upper Respiratory Infection, Adult Follow Up With When Contact Information Nathan Garcia MD Within 1 month [facility] [address] [place] [address]- Additional Instructions: Problem List/Past Medical History Ongoing Disease caused by 2019 novel coronavirus Historical No qualifying data Allergies amoxicillin??(Skin rash) Social History Electronic Cigarette/Vaping Electronic Cigarette Use: Never. Tobacco Never tobacco user Tobacco Use:. Lab Results Infectious Disease?? LATEST RESULTS?? Employed in healthcare??? 08/30/22 15:13?? No?? Symptomatic as defined by CDC??? 08/30/22 15:13?? No?? Hospitalized due to COVID-19??? 08/30/22 15:13?? No?? In ICU??? 08/30/22 15:13?? No?? Group care resident??? 08/30/22 15:13?? No?? status??? 08/30/22 15:13?? Not ?? SARS-CoV-2(Covid19)PCR(GXpert COVFLURSV)?? 08/30/22 15:13?? Negative?? Flu A (GXpert COVFLURSV)?? 08/30/22 15:13?? Negative?? Flu B (GXpert COVFLURSV)?? 08/30/22 15:13?? Negative?? RSV (GXpert COVFLURSV)?? 08/30/22 15:13?? Negative? Electronically Signed on 08/30/22 05:09 PM Davin Colin MD Emergency department Discharge instructions * Davin Colin MD: PERFORM, MODIFY Event Display: ED Discharge Information Authored Date: [id number] TY IZQUIERDO :2000 Age:22 years Sex:Male Visit Date:08/30/2022 Primary Care Physician: Nathan Garcia MD Discharge Instructions We would like to thank you for allowing us to assist you with your healthcare needs. The following includes patient education materials and information regarding your injury/illness. Diagnosis from Today's Visit Viral URI Discharge Vitals Temperature??(Temporal Artery) 96.6 ??F (35.9 ??C) Heart Rate??(Peripheral) 92 Respiratory Rate?? 20 Blood Pressure?? 101/69?? Height?? 72.83 in (185.000 cm) Weight??(Estimated) 134.50 lb (61.00 kg) Allergies amoxicillin??(Skin rash) What to Do Next You Need to Schedule the Following Appointments Follow Up with??Nathan Garcia MD When:??Within 1 month Where: [address] [address]- You were treated today on an emergency basis; it may be garcia to contact your primary care provider to notify them of your visit today. You may have been referred to your regular doctor or a specialist, please follow up as instructed. If your condition worsens or you can't get in to see the doctor, contact the Emergency Department. Education Materials Upper Respiratory Infection, Adult An upper respiratory infection (URI) is a common viral infection of the nose, throat, and upper airpassages that lead to the lungs. The most common type of URI is the common cold. URIs usually get better on their own, without medical treatment. What are the causes? A URI is caused by a virus. You may catch a virus by: ? Breathing in droplets from an infected person's cough or sneeze. ? Touching something that has been exposed to the virus (contaminated) and then touching your mouth, nose, or eyes. What increases the risk? You are more likely to get a URI if: ? You are very young or very old. ? It is fernando or winter. ? You have close contact with others, such as at a daycare, school, or health care facility. ? You smoke. ? You have long-term (chronic) heart or lung disease. ? You have a weakened disease-fighting (immune) system. ? You have nasal allergies or asthma. ? You are experiencing a lot of stress. ? You work in an area that has poor air circulation. ? You have poor nutrition. What are the signs or symptoms? A URI usually involves some of the following symptoms: ? Runny or stuffy (congested) nose. ? Sneezing. ? Cough. ? Sore throat. ? Headache. ? Fatigue. ? Fever. ? Loss of appetite. ? Pain in your forehead, behind your eyes, and over your cheekbones (sinus pain). ? Muscle aches. ? Redness or irritation of the eyes. ? Pressure in the ears or face. How is this diagnosed? This condition may be diagnosed based on your medical history and symptoms, and a physical exam. Your health care provider may use a cotton swab to take a mucus sample from your nose (nasal swab). This sample can be tested to determine what virus is causing the illness. How is this treated? URIs usually get better on their own within 7???10 days. You can take steps at home to relieve yoursymptoms. Medicines cannot cure URIs, but your health care provider may recommend certain medicinesto help relieve symptoms, such as: ? Vlyy-rol-fhevhal cold medicines. ? Cough suppressants. Coughing is a type of defense against infection that helps to clear the respiratory system, so take these medicines only as recommended by your health care provider. ? Fever-reducing medicines. Follow these instructions at home: Activity ? Rest as needed. ? If you have a fever, stay home from work or school until your fever is gone or until your health care provider says you are no longer contagious. Your health care provider may have you wear a face mask to prevent your infection from spreading. Relieving symptoms ? Gargle with a salt-water mixture 3???4 times a day or as needed. To make a salt- water mixture, completely dissolve ?1 tsp of salt in 1 cup of warm water. ? Use a cool-mist humidifier to add moisture to the air. This can help you breathe more easily. Eating and drinking ? Drink enough fluid to keep your urine pale yellow. ? Eat soups and other clear broths. General instructions ? Take whse-kjo-zzcpccu and prescription medicines only as told by your health care provider. These include cold medicines, fever reducers, and cough suppressants. ? Do not use any products that contain nicotine or tobacco, such as cigarettes and e-cigarettes. If you need help quitting, ask your health care provider. ? Stay away from secondhand smoke. ? Stay up to date on all immunizations, including the yearly (annual) flu vaccine. ? Keep all follow-up visits as told by your health care provider. This is important. How to prevent the spread of infection to others ? URIs can be passed from person to person (are contagious). To prevent the infection from spreading: ? Wash your hands often with soap and water. If soap and water are not available, use hand complex commercial litigation paralegal. ? Avoid touching your mouth, face, eyes, or nose. ? Cough or sneeze into a tissue or your sleeve or elbow instead of into your hand or into the air. Contact a health care provider if: ? You are getting worse instead of better. ? You have a fever or chills. ? Your mucus is brown or red. ? You have yellow or brown discharge coming from your nose. ? You have pain in your face, especially when you bend forward. ? You have swollen neck glands. ? You have pain while swallowing. ? You have white areas in the back of your throat. Get help right away if: ? You have shortness of breath that gets worse. ? You have severe or persistent: ? Headache. ? Ear pain. ? Sinus pain. ? Chest pain. ? You have chronic lung disease along with any of the following: ? Wheezing. ? Prolonged cough. ? Coughing up blood. ? A change in your usual mucus. ? You have a stiff neck. ? You have changes in your: ? Vision. ? Hearing. ? Thinking. ? Mood. Summary ? An upper respiratory infection (URI) is a common infection of the nose, throat, and upper air passages that lead to the lungs. ? A URI is caused by a virus. ? URIs usually get better on their own within 7???10 days. ? Medicines cannot cure URIs, but your health care provider may recommend certain medicines to help relieve symptoms. This information is not intended to replace advice given to you by your health care provider. Make sure you discuss any questions you have with your health care provider. Document Revised: 05/28/2021 Document Reviewed: 05/28/2021 [employer] Patient Education ?? 2021 [employer]. Tests Performed Lab Test Name Test Result Date/Time Employed in healthcare? No 08/30/2022 15:13 EST Symptomatic as defined by CDC? No 08/30/2022 15:13 EST Hospitalized due to COVID-19? No 08/30/2022 15:13 EST In ICU? No 08/30/2022 15:13 EST Group care resident? No 08/30/2022 15:13 EST status? Not 08/30/2022 15:13 EST SARS-CoV-2(Covid19)PCR(GXpert COVFLURSV) NEGATIVE 08/30/2022 15:13 EST Flu A (GXpert COVFLURSV) NEGATIVE 08/30/2022 15:13 EST Flu B (GXpert COVFLURSV) Neg-GeneXPert 08/30/2022 15:13 EST RSV (GXpert COVFLURSV) Neg-GeneXPert 08/30/2022 15:13 EST Patient/Flight Line Service Attendant Signature Patient Name:TY IZQUIERDO I have received this information and my questions have been answered. Patient/Flight Line Service Attendant Name: Patient/Flight Line Service Attendant Signature: Relationship to Patient: Witness Name/Signature: Date: Electronically Signed on: 08/30/2022 17:08 ESTSigned by:[facility] Emergency department Note * Elsie Aceves: PERFORM Event Display: ED Notes Authored Date: [id number] Patient Care team information Personnel Name: Nathan Garcia MD Address: Address: [address] [address]- [place]
--- OUTSIDE RECORDS SUMMARY | 2024-10-04 22:13 | XMS_ITS | Clinical Summary ---
Author Organization [facility] Address [address] [place] [address] Care Team Providers Care Hospice Care Sales Consultant Name Role Phone Radha Boles MD Primary Care Provider [phone] Social History Tobacco Use Types Packs/Day Years Used Date Smoking Tobacco: Never Assessed Interpersonal Safety Answer Date Record ed Physically Hurt Never 08/26/2020 Verbally Threaten Not on file 08/26/2020 Sex and Gender Information Value Date Recorded Sex Assigned at Not on file Legal Sex Male 16:20 EDT Gender Identity Not on file Sexual Orientation Not on file Plan of Treatment Health Maintenance Due Date Last Done Comments Hepatitis C Screen 2002 Hepatitis B Vaccine (1 of 3 - 19+ 3-dose series) 03/26 COVID-19 Vaccine ( season) 2024 Insurance MEDICAID [place] Care Teams Hospice Care Sales Consultant Relationship Specialty Start Date End Date Radha Boles MD [address] [place] [address] PCP - General Pediatrics - Primary Care 01/01/22
--- OUTSIDE RECORDS SUMMARY | 2024-10-04 22:14 | XMS_ITS | Encounter Summary ---
Author Organization [facility] Address [address] [place] [address] Care Team Providers Care Roofing Sales Representative Name Role Phone Radha Boles MD Primary Care Provider [phone] Encounter Details Date Type Department Care Team (Late st Contact Info) Description 11/06/2020 Lab Requisition [facility] Pathology & Laboratory Medicine - [address] [address] Outr Resulting Lab, Provider Social History Tobacco [...] Comments ZZCOVID-19 TEST [facility] PCR Today 11/06/2020 9:21 EST COVID-19 TESTING Routine 11/06/2020 9:21 EST documented in this encounter Results * COVID-19 TEST [facility] PCR (11/06/2020 9:21 EST) Swab ENTIRE NASOPHARYNX / Unknown 11/06/2020 9:21 EST 11/06/2020 18:00 EST us Provider Outr Resulting Lab MICROBIOLOGY - GENER AL ORDERABLES Final Result [facility] [address] [place] [address] * COVID-19 TESTING (11/06/2020 9:21 EST) COVID-19 rt-PCR Result Negative Negative 11/07/2020 15:24 EST [facility] Comment: This test has not [...] developed and its performance characteristics determined by [facility]. It has not been cleared or approved [...] testing. This test is based on the [facility] COVID-19 Emergency Use Authorization (EUA) assay, with minor modification as defined by the FDA Performed on the Applied Vivakoro 7 Flex RT-PCR System. Performing Lab [facility] Lab 11/07/2020 15:24 EST [facility] Swab 11/06/2020 9:21 EST 11/06/2020 18:00 EST us Provider Outr Resulting Lab MICROBIOLOGY - GENER AL ORDERABLES Final Result [facility] [address] [place] [address] documented in this encounter Visit Diagnoses Not on filedocumented in this encounter Care Teams Roofing Sales Representative Relationship Specialty Start Date End Date Radha Boles MD [address] [place] [address] PCP - General Pediatrics - Primary Care 01/01/22 documented as of this encounter
--- OUTSIDE RECORDS SUMMARY | 2024-10-04 22:14 | XMS_ITS | Encounter Summary ---
[facility] Organization [facility] [place] [address] Care Team Providers Care Accounts Payable Supervisor Name Role Phone Unknown Primary Care Provider Unavailabl e Encounter Details Date Type Department Care Team (Late st Contact Info) Description 01/09/2024 Interpretation Only [address] [phone] Markus Nation MD [address] [place] [address] Social History Tobacco Use Types Packs/Day Years Used Date Smoking Tobacco: Never Assessed Sex and Gender Information Value Date Recorded Sex Assigned at Not on file Gender Identity Not on file Sexual Orientation Not on file documented as of this encounter Plan of Treatment Not on file documented as of this encounter Procedures Procedure Name Priority Date/Time Associated Diagnosis Comments XR CHEST PA AND LATERAL STAT 01/09/2024 10:36 PM EDT documented in this encounter Results * XR Chest PA & Lateral (Generic) (01/09/2024 10:36 PM EDT) PT CLASS E RAD ADMITDTTM [id number] RAD PT RAD INFO [id number]^Rios^ Markus RAD EXAM DESC XCXR2^XR Chest 2 Views^RIS RAD Anatomical Region Laterality Modality Chest N/A Radiographic Melva ging 01/09/2024 10:3 6 PM EDT Impressions 01/09/2024 10:50 PM EDT No acute cardiopulmonary process. Thank you for letting us participate in the care of this patient. ??If you are a health care provider and have any questions regarding this report, please contact the number below. ??For patients who have questions please contact the health pet caregiver that requested your imaging first. ? Electronically signed by: Uma Contreras MD, [facility] ([phone]), at 01/09/2024 10:50 PM Narrative 01/09/2024 10:50 PM EDT EXAMINATION: XR Chest 2 Views CLINICAL HISTORY: cough TECHNIQUE: PA and lateral chest COMPARISON: Chest x-ray, July 19, 2019 FINDINGS: Lungs are clear and without focal consolidation. The cardiomediastinal silhouette and pulmonary vasculature are within normal limits. No pleural effusion or pneumothorax. No acute osseous findings. Procedure Note Uma Contreras MD - 01/09/2024 EXAMINATION: XR Chest 2 Views CLINICAL HISTORY: cough TECHNIQUE: PA and lateral chest COMPARISON: Chest x-ray, July 19, 2019 FINDINGS: Lungs are clear and without focal consolidation. The cardiomediastinal silhouette and pulmonary vasculature are within normal limits. Nopleural effusion or pneumothorax. No acute osseous findings. IMPRESSION No acute cardiopulmonary process. Thank you for letting us participate in the care of this patient. If youare a health care provider and have any questions regarding this report,please contact the number below. For patients who have questions please contactthe health pet caregiver that requested your imaging first. Electronically signed by: Uma Contreras MD, [facility]([phone]), at 01/09/2024 10:50 PM Markus Nation MD IMG DX ORDERABLES documented in this encounter Visit Diagnoses Not on filedocumented in this encounter Care Teams Accounts Payable Supervisor Relationship Specialty Start Date End Date Unknown None PCP - General 02/16/22 documented as of this encounter
--- OUTSIDE RECORDS SUMMARY | 2024-10-04 22:14 | XMS_ITS | Encounter Summary ---
[place] [address] Care Team Providers Care Criminal Intelligence Analyst Name Role Phone Unknown Primary Care Provider Unavailabl e Encounter Details Date Type Department Care Team (Late st Contact Info) Description 06/13/2023 Interpretation Only [address] [phone] Ray Marshall MD [address] [place] [address] Social History Tobacco Use Types Packs/Day Years Used Date Smoking Tobacco: Never Assessed Sex and Gender Information Value Date Recorded Sex Assigned at Not on file Gender Identity Not on file Sexual Orientation Not on file documented as of this encounter Plan of Treatment Not on file documented as of this encounter Procedures Procedure Name Priority Date/Time Associated Diagnosis Comments XR ANKLE MIN 3 VIEWS LEFT STAT 06/13/2023 6:00 PM EDT documented in this encounter Results * XR Ankle Min 3 views Left (Generic) (06/13/2023 6:00 PM EDT) PT CLASS E RAD ADMITDTTM RAD PT RAD INFO [id number]^C HANDER^SUNEE R RAD EXAM DESC XRANKMVL^XR LEFT ANKLE COMPLETE^RIS RAD Anatomical Region Laterality Modality Ankle Left Radiographic Melva ging Impressions 06/13/2023 6:22 PM EDT 1. ??Small tibiotalar joint effusion. 2. ??No acute fracture or malalignment. 3. ??If concern for radiographically occult fracture consider repeat ankle radiographs in 10-14 days. I have personally reviewed the image(s) and the resident's interpretation and agree with the findings, Krystin Paulino MD at 06/13/2023 6:22 PM Thank you for letting us participate in the care of this patient. ??If you are a health care provider and have any questions regarding this report, please contact the number below. ??For patients who have questions please contact the health care partner that requested your imaging first. ? Electronically signed by: Krystin Paulino MD, [facility] ([phone]), at 06/13/2023 6:22 PM Narrative 06/13/2023 6:22 PM EDT EXAMINATION: XR LEFT ANKLE COMPLETE CLINICAL HISTORY: left ankle injury and pain TECHNIQUE: PA, lateral, and oblique views of the left ankle. 3 images COMPARISON: None FINDINGS: No acute fracture. The ankle mortise is congruent. No medial clear space widening on these nonweightbearing views. The talar dome is intact. Small tibiotalar joint effusion. Procedure Note Krystin Paulino MD - 06/13/2023 EXAMINATION: XR LEFT ANKLE COMPLETE CLINICAL HISTORY: left ankle injury and pain TECHNIQUE: PA, lateral, and oblique views of the left ankle. 3 images COMPARISON: None FINDINGS: No acute fracture. The ankle mortise is congruent. No medial clear space widening on these nonweightbearing views. The talar dome is intact. Small tibiotalar joint effusion. IMPRESSION 1. Small tibiotalar joint effusion. 2. No acute fracture or malalignment. 3. If concern for radiographically occult fracture consider repeatankle radiographs in 10-14 days. I have personally reviewed the image(s) and the resident's interpretationand agree with the findings, Krystin Paulino MD at 06/13/2023 6:22 PM Thank you for letting us participate in the care of this patient. If youare a health care provider and have any questions regarding this report,please contact the number below. For patients who have questions please contactthe health care partner that requested your imaging first. Electronically signed by: Krystin Paulino MD, [facility]([phone]), at 06/13/2023 6:22 PM Ray Marshall MD IMG DX ORDERABLES documented in this encounter Visit Diagnoses Not on filedocumented in this encounter Care Teams Criminal Intelligence Analyst Relationship Specialty Start Date End Date Unknown None PCP - General 02/16/22 documented as of this encounter
--- OUTSIDE RECORDS SUMMARY | 2024-10-04 22:14 | XMS_ITS | Encounter Summary ---
[place] [address] Care Team Providers Care Animal Shelter Clerk Name Role Phone Franc Novak MD Primary Care Provider [phone] Reason for Visit * Auth/Cert Specialty Diagnoses / Procedures Referred By Contac t Referred To Contact Diagnoses dental impaction Procedures PRO IMPACT TOOTH REMOV COMP BONY PRO ANESTH, PROCEDURE ON MOUTH SURGICAL EXTRACTIONS, REMOVAL OF IMPACTED TOOTH, COMPLETELY BONY (WRVU 1.93) Referral ID Status Reason Start Date Expiration Date Visits Re quested Visits Authorized [id number] 1 1 Encounter Details Date Type Department Care Team (Late st Contact Info) Description 01/26/2021 10:02 AM EDT - 01/26/2021 11:22 AM EDT [facility] [place] [address] Joshua Almeida MD [facility] [place] [address] SURGICAL EXTRACTIONS, REMOVAL OF IMPACTED TOOTH, COMPLETELY BONY (WRVU 1.93) Social History Tobacco Use Types Packs/Day Years Used Date Smoking Tobacco: Never Assessed Sex and Gender Information Value Date Recorded Sex Assigned at Not on file Gender Identity Not on file Sexual Orientation Not on file documented as of this encounter Last Filed Vital Signs Vital Sign Reading Time Taken Comments Blood Pressure 117/76 01/26/2021 11:15 AM EDT Pulse 80 01/26/2021 11:15 AM EDT Temperature 36.8 ??C (98.2 ??F) 01/26/2021 10:27 AM E DT Respiratory Rate 16 01/26/2021 11:15 AM EDT Oxygen Saturation 99% 01/26/2021 11:15 AM EDT Inhaled Oxygen Concentration - - Weight - - Height - - Body Mass Index - - documented in this encounter Discharge Instructions * Discharge Instructions* Gladys Jacob RN - 01/26/2021 10:39 AM EDT You received a dose of Ketorolac in the OR today, please DO NOT take Ibuprofen/Motrin until 4 pm. * Patient Instructions* Joshua Almeida MD - 01/26/2021 10:18 AM EDT On the Day of Surgery: DO NOT rinse your mouth, smoke, or use a straw when drinking. Any of these could cause you to bleed more. You should remain at home, rest, and avoid alcoholic beverages. Discomfort: It is not uncommon for you to have some discomfort following a surgical procedure. Thisdiscomfort may last for three days or more. Pain relievers such as ibuprofen or Tylenol (acetaminophen) may be taken - please follow the directions on the bottle. If a narcotic is prescribed, take this only as needed. Narcotic drugs may cause nausea. DO NOT take them on an empty stomach, and DO NOTdrive or consume alcohol while on narcotics. If prescribed Vicodin, usual dosage is 1-2 tablets every 4-6 hours as needed for pain. Total daily dosage SHOULD NOT EXCEED 8 tablets. If you decide to take the Vicodin, do not take Tylenol (acetaminophen) with it as Vicodin contains Tylenol. Other discomforts you may experience include: slight earache, sore throat, numbness or tingling in the lips or chin, aches in other teeth, and tightness of the jaw muscles. Bleeding: It is normal for the extraction site to bleed post-operatively. If bleeding continues, place gauze directly over the socket and bite down gently, but firmly, for 20 minutes. Repeat this process as needed. If bleeding is heavy, keep head elevated or sit upright, avoid exercise, hot liquids, smoking, and drinking from straws. If the bleeding does not stop with pressure, try a lukewarm, damp tea bag in place of the gauze for another 20 minutes. The tea bag will help to form blood clotsand stop the bleeding. If bleeding continues, call your doctor. Swelling: To reduce immediate swelling after your procedure, apply an ice pack, with pressure, to the face over the area of the procedure. Ice should be applied for 15-20 minutes at a time, for the first 24 hours. After 24 hours, a moist warm compress may be helpful. Most swelling will occur [id number] hours following the procedure. Mouth Rinse: Vigorous mouth washing may cause bleeding to begin again if clots are not formed. DO NOT RINSE on the day of surgery. Begin rinsing one day after the procedure very gently with warm saltwater (1/2 teaspoon per 8 oz. warm water). Continue rinsing 3-6 times a day for several days. This will keep surgical sites clean and will help with healing. Diet: It is best to eat light, soft foods, and drink plenty of liquids following a surgical procedure. Foods like, yogurt, pasta, eggs, soups, and ice cream are good choices. Avoid hot liquids for 24hours after tooth extraction. Avoid foods that are difficult to chew. Once chewing becomes easier, you may return to your normal diet. In General: If stitches are used, they will dissolve or unravel in about three days to one week. Avoid strenuous exercise, such as jogging and contact sports for at least one week following surgery. Swelling is usually most extensive 24- 48 hours following surgery, and usually takes 4-5 days to subside. Sockets can take 4-6 weeks to heal, and often heal from the inside out. It may take 10-14 days before you feel like your normal self again. Infection: Can occur at any time, but it is evident more often 4-7 days after a procedure. Please contact us at the numbers below if you have one or more of the following: ? Temperature elevation greater than 100.5 ? Worsening swelling after the initial 48 hour period ? Severe and worsening pain ? Pus or other foul drainage from the extraction site ? Foul smell or taste coming from the extraction site ? Generalized body chills or fever During business hours 8am-5pm M-F please call our office at [phone] otherwise call the main number [phone] and ask to connect with Dr. Almeida documented in this encounter Medications at Time of Discharge Medication Sig Dispensed Refills Start Date End Date HYDROcodone-acetaminophe n (Aldrich) 5-325 mg Tablet Take 1 tablet by mouth every 6 hours as needed. 12 tablet 01/26/2021 ibuprofen (Advil;Motrin) 600 mg Tablet Take 1 tablet by mouth every 6 hours as needed for Pain. 20 tablet 01/26/2021 chlorhexidine (Peridex) 0.12 % Mouthwash Take 15 mLs by mouth 2 times daily for 7 days. 210 mL 01/26/2021 02/02/2021 documented as of this encounter Progress Notes * Gladys Jacob RN - 01/26/2021 11:35 AM EDT Discharge instructions and medications reviewed with patient and dad, Carlos. All questions answered and written copy sent home with patient. PIV removed. Pt drinking copious amounts prior to discharge. Patient ambulated to the restroom to void. Patient ambulated to car for [facility] staff member. * Zeina Blackwell - 01/26/2021 9:55 AM EDT [facility] Anesthesia Note Psychosocial Risk Assessment in Pediatrics (PRAP) PRAP ID Number: [id number] Mina Verma PRAP Score: 7 Level 1: Low Risk (0-7 points) Minimal distress is experienced. Patient has coping ability to manage most of the healthcare experience. Provide general support. Copyright 2012 [facility]. All rights reserved. Patient's Name: Mina Verma Child prefers to be called: Mina Patient's age: 20 y.o. Patient's date of : 2000 Child life services involved in order to provide procedural preparation and support for anesthesia induction. Patient demonstrates age appropriate interactive behavior and coping, as well as an appropriate understanding of his procedure. Patient???s father is present this visit, and expressed needing access to patient's information, which RN later connected to the fact that patient has high functioning autism. Patient has not had past experience with anesthesia, but cried at the thought of getting a needle. This CCLS provided preparation for anesthesia mask induction, which patient kept calling the gas mask. Patient demonstrated positive coping during induction and utilized talking about racing for distraction. Patient was initially tearful father could not come back with him, but ended up doing well with this advertising writer and anesthesia team. Please contact [facility] for any additional needs. Zeina Blackwell MS, CCLS Certified [employer]ise [employer]er Pager # [phone] * Nyla Ansari RN - 01/23/2021 2:52 PM EDT During this call the patient was questioned regarding travel outside of [place] states, fever, cough, SOB or other illness in the last 14 days. Patient also questioned regarding any exposure to aCOVID positive person, a person awaiting results from testing or a person in quarantine.Patient also denies attending a gathering of 50 people indoors or 100 people outdoors where a mask was unable to be worn.Please call with any positive responses to the above questions for themselves or their escort for the day of procedure. Patient informed of procedure to be followed upon arrival to the [facility]. That being, COVID questions will be asked again, temperature will be taken, patient and caregiver/ups driver will be given a mask to wear the entire time they are in the [facility] building. * Gracy Arrieta RN - 01/22/2021 12:08 PM EDT During this call the patient was questioned regarding travel outside of [place] states, fever, cough, SOB or other illness in the last 14 days. Patient also questioned regarding any exposure to aCOVID positive person, a person awaiting results from testing or a person in quarantine.Patient also denies attending a gathering of 50 people indoors or 100 people outdoors where a mask was unable to be worn.Patient denies any positive responses to the above questions for themselves or their escort for the day of procedure. Patient informed of procedure to be followed upon arrival to the [facility]. That being, COVID questions will be asked again, temperature will be taken, patient and caregiver/ups driver will be given a mask to wear the entire time they are in the [facility] building. documented in this encounter H&P Notes * Joshua Almeida MD - 01/26/2021 9:15 AM EDT Images from the original note were not included. The patient's history and physical exam have been reviewed and completed. There has been no interval change from that of the pre-operative history and physical exam done within the last 30 days. CV: regular rate and rhythm Lungs: BCTA Oral exam: minimal attached tissue distal to second molars Plan is to extract #1,16,17,32 Dparq/consent obtained. Risks reviewed including damage to adjacent structures such as bone, sinus,nerve, possibility of infection, bleeding, pain, swelling, and need for further surgery. Joshua Almeida MD, DMD documented in this encounter Miscellaneous Notes * Op Note - Joshua Almeida MD - 01/26/2021 9:57 AM EDT [facility] [place] Patient Name: Mina Verma : [id number] MR#: [id number] Case Date: 01/26/2021 Surgeon: Surgeon(s) and Role: * Joshua Almeida MD , DMD, [facility] - Primary Preoperative diagnosis: dental impaction Postoperative diagnosis: dental impaction Procedure(s) (LRB): SURGICAL EXTRACTIONS, REMOVAL OF IMPACTED TOOTH, COMPLETELY BONY (WRVU 1.93) (N/A) [id number] - surgical extraction of #1/16 Anesthesia: General Estimated Blood Loss: 5 mL Specimens removed during surgery: * No orders in the log * Drains: * No LDAs found * Surgical Closure: Primary Closure - skin incision is completely closed without any wires, zayda, drains or other devices Disposition: awakened from anesthesia, extubated and taken to the recovery room in a stable condition, having suffered no apparent untoward event. Condition: doing well without problems (Please see the Surgical Encounter Summary for any Implant and Specimen details pertinent to this patient.) HPI/Surgical Indications: he states that the upper teeth have come through but irritate his cheek. dparq consent and treatment plan reviewed. He wishes to move forward with extraction of 4 wisdom teeth. Procedure Description: The patient was brought to the operating room and placed under general anesthesia via nasoendotracheal tube. Mina Lowery prepped and draped in the standard fashion for director of surgery. The oral cavity was suctioned and an oral pharyngeal pack was placed.18 cc of 1% Xylocaine with 1-200,000 epinephrine was used to infiltrate the surgical sites. #15 blade was used to make an incision in the soft tissue overlying the erupted maxillary right third molar - tooth #1. Mucoperiosteum was then reflected and elevated superiorly. Mucoperiosteum was then reflected and elevated superiorly. Bone overlying the buccal surface of the tooth was removed. The tooth was then extracted using a forcep elevator technique and the extraction site was curetted and irrigated. No evidence of sinus communication was encountered. An identical procedure was used remove the erutped maxillary left third molar - tooth #16. Attention was then turned to the mandible where 15 blade was used to incise the soft tissue overlying the complete bony impacted lower right third molar - tooth #32. Mucoperiosteum was reflected laterally in a lingual nerve sparing fashion. Bone overlying the occlusal surface of the tooth and the tooth perimeter was performed. The impacted tooth was then divided into multiple fragments to facilitate its delivery. The extraction site was subsequently irrigated and the soft tissue was coapted with interrupted 3-0 chromic suture. No evidence of lingual plate damage or exposure of the inferior alveolar nerve. An identical procedure was used remove the complete bony impacted mandibular left third molar - tooth #17. No evidence of injury to the sinuses or inferior alveolar nerve noted. The oral cavity was then carefully suctioned and the oral pharyngeal pack was removed. The patient was awakened, extubated and brought to the recovery room in satisfactory condition having tolerated the procedure well with a minimum of blood loss. All needle counts and sponge counts were correct. Disposition: Patient will go home pending meeting discharge criteria. Infection Bundle used? N/A Attestation: Case Date: 01/26/2021 I performed this procedure without the involvement of a resident. Joshua Almeida MD 01/26/2021 documented in this encounter Plan of Treatment Not on file documented as of this encounter Procedures Procedure Name Priority Date/Time Associated Diagnosis Comments SURGICAL EXTRACTIONS, REMOVAL OF IMPACTED TOOTH, COMPLETELY BONY (WRVU 1.93) 01/26/2021 9:43 AM EDT Impacted teeth SURGICAL EXTRACTIONS,REMOVAL OF IMPACTED TOOTH,COMPLETELY BONY Routine 01/26/2021 8:57 AM EDT Impacted teeth documented in this encounter Visit Diagnoses Diagnosis Impacted teeth- Primary Impacted teeth documented in this encounter Admitting Diagnoses Diagnosis Impacted teeth documented in this encounter Administered Medications Inactive Administered Medications - up to 3 most recent administrations Medication Order MAR Action Action Date Dose Rate Site lidocaine-EPINEPHrine (1% - 1:100,000) injection ONCE PRN, Starting on Tue01/26/21 at 1000, Until Tue01/26/21 at 1338, Intra-Operative (Intra-Procedure), Routine Given 01/26/2021 10:06 AM EDT 7 mLs 19- Surgical Site Given 01/26/2021 10:00 AM EDT 8 mLs 1 9- Surgical Site documented in this encounter Active and Recently Administered Medications Times are shown in EDT. Scheduled Medication Order 01/24/2021 01/25/2021 01/26/2021 clindamycin (Cleocin) 600 mg in dextrose 5% 50 mL infusion (COMPLETED) 600 mg, Intravenous, EMBEDDED HARDWARE ENGINEER TO O.R., 1 dose, On Tue01/26/21 at 0745, Indication for (Active or Suspected): Prophylaxis 0954 (Given - Provid er: Danica Perez CRNA) Continuous Medication Order 01/24/2021 01/25/2021 01/26/2021 lactated ringers infusion (CANCELED) 1,000 mL, at 100 mL/hr, Intravenous, CONTINUOUS, Starting on Tue01/26/21 at 0930, Until Tue01/26/21 at 1136, Day of Surgery (Day of Procedure) 0941 (New Bag - Prov ider: Danica Perez CRNA)1025 (New Bag - Provider: Danica Perez CRNA) PRN Medication Order 01/24/2021 01/25/2021 01/26/2021 lidocaine-EPINEPHrine (1% - 1:100,000) injection (CANCELED) ONCE PRN, Starting on Tue01/26/21 at 1000, Until Tue01/26/21 at 1338, Intra-Operative (Intra-Procedure), Routine 1000 (Given - Provid er: Joshua Almeida MD)1006 (Given - Provider: Josuha Almeida MD) documented in this encounter Care Teams Animal Shelter Clerk Relationship Specialty Start Date End Date Franc Novak MD [address] [place] [address] PCP - General Pediatrics 11/24/20 02/15/22 documented as of this encounter
--- OUTSIDE RECORDS SUMMARY | 2024-10-04 22:14 | XMS_ITS | Encounter Summary ---
Author Organization [facility] [place] [address] Care Team Providers Care Turf Farm Worker Name Role Phone Franc Novak MD Primary Care Provider [phone] Encounter Details Date Type Department Care Team (Late st Contact Info) Description 11/24/2020 Telephone [place] [phone] Rosanna Carver Social History Tobacco Use Types Packs/Day Years Used Date Smoking Tobacco: Never Assessed Sex and Gender Information Value Date Recorded Sex Assigned at Not on file Gender Identity Not on file Sexual Orientation Not on file documented as of this encounter Miscellaneous Notes * Telephone Encounter - Rosanna Carver - 11/24/2020 10:45 AM EST Juliuselyse, Patient is scheduled to have surgery on 01/26/2021 and the packet has been mailed to the verified address on file. Follow up appointment is as follows: no follow up indicated COVID Testing: No test request noted in case Thank you!! documented in this encounter Plan of Treatment Not on file documented as of this encounter Visit Diagnoses Not on filedocumented in this encounter Care Teams Turf Farm Worker Relationship Specialty Start Date End Date Franc Novak MD [address] [place] [address] [place] [address] PCP - General Pediatrics 11/24/20 02/15/22 documented as of this encounter
--- OUTSIDE RECORDS SUMMARY | 2024-10-04 22:14 | XMS_ITS | Encounter Summary ---
[facility] Organization [facility] [place] [address] Care Team Providers Care Hvac Installer Name Role Phone Unknown Primary Care Provider Unavailabl e Encounter Details Date Type Department Care Team (Late st Contact Info) Description 10/02/2024 Interpretation Only [address] [phone] Markus Nation MD [address] [place] [id number] Social History Tobacco Use Types Packs/Day Years Used Date Smoking Tobacco: Never Assessed Sex and Gender Information Value Date Recorded Sex Assigned at Not on file Gender Identity Not on file Sexual Orientation Not on file documented as of this encounter Plan of Treatment Not on file documented as of this encounter Procedures Procedure Name Priority Date/Time Associated Diagnosis Comments XR CHEST ONE VIEW STAT 10/02/2024 11: 03 AM EST documented in this encounter Results * XR Chest One View (10/02/2024 11:03 AM EST) PT CLASS E RAD ADMITDTTM [id number] RAD PT RAD MD INFO [id number]^Rios ^Markus RAD EXAM DESC XCXR1^XR Chest 1 View^RIS RAD WORKSTATION ID [id number] RAD Anatomical Region Laterality Modality Chest N/A Radiographic Melva ging 10/02/2024 11:0 2 AM EST Impressions 10/02/2024 11:24 AM EST Clear lungs Thank you for letting us participate in the care of this patient. ??If you are a health care provider and have any questions regarding this report, please contact the number below. ??For patients who have questions please contact the health resident care technician that requested your imaging first. ? Electronically signed by: Carlos Dumas MD, [facility] ??([phone]), at 10/02/2024 11:24 AM Narrative 10/02/2024 11:24 AM EST EXAMINATION: XR Chest 1 View CLINICAL HISTORY: cough with hemoptysis TECHNIQUE: PA chest radiograph COMPARISON: 01/09/2024 FINDINGS: The cardiomediastinal silhouette is within normal limits The lungs are clear. No pleural effusion or pneumothorax Procedure Note Carlos Dumas MD - 10/02/2024 EXAMINATION: XR Chest 1 View CLINICAL HISTORY: cough with hemoptysis TECHNIQUE: PA chest radiograph COMPARISON: 01/09/2024 FINDINGS: The cardiomediastinal silhouette is within normal limits The lungs are clear. No pleural effusion or pneumothorax IMPRESSION Clear lungs Thank you for letting us participate in the care of this patient. If youare a health care provider and have any questions regarding this report,please contact the number below. For patients who have questions please contactthe health resident care technician that requested your imaging first. Markus Nation MD IMG DX ORDERABLES documented in this encounter Visit Diagnoses Not on filedocumented in this encounter Care Teams Hvac Installer Relationship Specialty Start Date End Date Unknown None PCP - General 02/16/22 documented as of this encounter
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
--- OUTSIDE RECORDS SUMMARY | 2024-10-04 22:14 | XMS_ITS | Encounter Summary ---
Author Organization [facility] [place] [address] Care Team Providers Care Stock Preparer Name Role Phone None Primary Care Provider Unavailabl e Reason for Visit * Consultation (Routine) - Specialty Diagnoses / Procedures Referred By Teofilo spencer Referred To Contact Maxillofacial Surgery Diagnoses evaluate wisdom teeth extractions 1, 16, 17, 32 PANO [place] [address] [facility] [address] [place] [phone] Referral ID Status Reason Start Date Expiration Date V isits Requested Visits Authorized [id number] 05/22/2020 05/22/2021 1 1 Encounter Details Date Type Department Care Team (Late st Contact Info) Description 08/12/2020 8:00 AM EST TH Visit (TeleHealth) [place] [address] Vinod Salinas MD [facility] ORAL AND [place] [address] Impacted teeth Social History Tobacco Use Types Packs/Day Years Used Date Smoking Tobacco: Never Assessed Sex and Gender Information Value Date Recorded Sex Assigned at Not on file Gender Identity Not on file Sexual Orientation Not on file documented as of this encounter Progress Notes * Vinod Salinas MD - 08/12/2020 8:00 AM EST Oral & Maxillofacial Surgery Extraction Consult conducted by telephone with patient's dad. Patient is in school at [employer]. He is autistic. Mina Verma is a 20 y.o. male who is referred to us by Dr. Reese Dangelo for consultation regarding dental extractions specifically extractions of for complete bony impacted wisdom teeth. A complete history of the Mina 's symptoms and physical signs were reviewed with attention to initial findings and progression, pain, bleeding, swelling, lumps, bumps, drainage, dysphagia, odynophagia, paresthesia, dysarthria and systemic effects. Pertinent notations from today's history: ?? The patient's dad indicates that he has minor discomfort with his wisdom teeth but no facial swelling. He recently had 2 restorations performed without local anesthesia. ? In [facility] he recently had an attempt at a wisdom tooth extraction which proved extremelydifficult. He could not sit still in the chair and was panicking. He was subsequently referred to our office. ?? He has completed orthodontic therapy and has a lower anterior permanent retainer but no removable retainers. Past Medical and Dental History: No past medical history on file. He has a negative medical history and that he has had no prior surgery. He takes no medications andhas no documented allergies. There is no problem list on file for this patient. No current outpatient medications on file. Allergies Allergen Reactions ??? Amoxicillin Rash The chart indicates an allergy to amoxicillin I therefore called his father back and dad indicated that the rash was minor and it was when he was an infant. He has however never taken this medicationsubsequently. ROS with attention to cardiac, pulmonary, hepatic, renal, neurologic and dermatologic systems reviewed with relevant findings as noted. Although not playing sports he can run up a flight of stairs without difficulty. Physical Exam: His dad indicates that he has no facial swelling and that he can open and close without difficulty. He does not smoke. He is 6 feet tall and weighs 130 pounds. Radiographic Examination: [facility]orex radiograph obtained in May of this year demonstrates a well mineralized mandible and maxilla with a flattened left condylar head. He has a permanent retainer cemented to the lower anterior teeth. For complete bony impacted wisdom teeth are identified with mandibular third molar root apices proximate to the inferior alveolar nerve and with mesial angulation of the lowers right side greater than left. Impression: Otherwise healthy 20-year-old with autism having had very difficult time with attemptedlocal anesthesia for extraction of wisdom tooth now presenting with for complete bony impacted teeth. Recommendations and Plans: General anesthesia in the [facility] for extraction of bony impacted third molars Anticipated benefits and potential risks of the surgical intervention discussed were carefully reviewed with the patient's dad including but not limited to bleeding, infection, soft tissue dehiscence, delayed wound healing, nerve paresthesias and palsies, sinus injuries, injuries to adjacent tissues both hard and soft and possible need for additional surgery. Questions regarding the proposed intervention were encouraged and answered. They understand that Dr. Almeida may be performing the procedure and that they are to have a physical exam within 30 days of the scheduled procedure date. They are also aware of scheduling constraints. He has been reminded to have his son refrain from food or liquid from midnight the night prior to the procedure. Time Statement: Thirty minutes was spent with the patient greater than 20 minutes of which includeddirect discussion regarding the clinical and radiographic findings where indicated, the potential diagnoses and a review of the natural history as well as treatment alternatives, their benefits and at tendant risks. This includes chart review and documentation. Mina was given an opportunity to ask questions and instructed to contact us if further questions arise following the consultation. documented in this encounter Plan of Treatment Not on file documented as of this encounter Visit Diagnoses Diagnosis Impacted teeth documented in this encounter Care Teams Stock Preparer Relationship Specialty Start Date End Date None None PCP - General 05/13/19 11/23/20 documented as of this encounter
--- OUTSIDE RECORDS SUMMARY | 2024-10-04 22:14 | XMS_ITS | Encounter Summary ---
Author Organization [facility] [place] [address] Care Team Providers Care Wet Pour Mixer Name Role Phone None Primary Care Provider Unavailabl e Encounter Details Date Type Department Care Team (Late st Contact Info) Description 08/12/2020 Orders Only Maxillofacial [place] [address] Joshua Almeida MD [facility] [place] [address] Impacted teeth Social History Tobacco Use Types [...] teeth documented in this encounter Care Teams Wet Pour Mixer Relationship Specialty Start Date End Date None None PCP - General 05/13/19 11/23/20 documented as of this encounter
--- OUTSIDE RECORDS SUMMARY | 2024-10-04 22:14 | XMS_ITS | Encounter Summary ---
[place] [address] Care Team Providers Care Software Configuration Specialist Name Role Phone Franc Novak MD Primary Care Provider [phone] Reason for Visit * Auth/Cert Specialty Diagnoses / Procedures Referred By Contac t Referred To Contact Diagnoses dental impaction Procedures PRO IMPACT TOOTH REMOV COMP BONY PRO ANESTH, PROCEDURE ON MOUTH SURGICAL EXTRACTIONS, REMOVAL OF IMPACTED TOOTH, COMPLETELY BONY (WRVU 1.93) Referral ID Status Reason Start Date Expiration Date Visits Re quested Visits Authorized [id number] 1 1 Encounter Details Date Type Department Care Team (Latest Contact Info) Description 01/26/2021 8:57 AM EDT - 01/26/2021 11:38 AM EDT Hospital Encounter Outpatient [place] [address] Joshua Almeida MD [facility] [place] [address] Impacted teeth; Impacted teeth Discharge Disposition: Home Social History Tobacco Use [...] may be helpful. Most swelling will occur [id number] hours following the procedure. Mouth Rinse: Vigorous [...] 8am-5pm M-F please call our office at [phone] otherwise call the main number [phone] and ask to connect with Dr. Almeida documented in this encounter Medications at Time of Discharge Medication Sig Dispensed Refills Start Date End Date HYDROcodone-acetaminophe n (Maben) 5-325 mg Tablet Take 1 tablet by [...] Assessment in Pediatrics (PRAP) PRAP ID Number: [id number] Mina Verma PRAP Score: 7 Level 1: Low Risk (0-7 points) Minimal distress is experienced. Patient has coping ability to manage most of the healthcare experience. Provide general support. Copyright 2012 [facility]. All rights reserved. Patient's Name: Mina [...] but ended up doing well with this poem writer and anesthesia team. Please contact [facility] for any additional needs. Zeina Blackwell MS, CCLS Certified Drag Out Worker Pager # [phone] * Nyla Ansari RN - 01/23/2021 2:52 PM EDT During this call the patient was questioned regarding travel outside of [place], fever, cough, SOB or other illness [...] again, temperature will be taken, patient and caregiver/shuttle van driver will be given a mask to wear the entire time they are in the [facility] building. * Gracy Arrieta RN - 01/22/2021 12:08 PM EDT During this call the patient was questioned regarding travel outside of [place], fever, cough, SOB or other illness [...] again, temperature will be taken, patient and caregiver/shuttle van driver will be given a mask to [...] Almeida MD - 01/26/2021 9:57 AM EDT [facility] [place] Patient Name: Mina Verma : [id number] MR#: [id number] Case Date: 01/26/2021 Surgeon: Surgeon(s) and Role: * Joshua Almeida MD , DMD, FACS - Primary Preoperative diagnosis: dental impaction Postoperative [...] and draped in the standard fashion for neurosurgery physician. The oral cavity was suctioned and an [...] encounter Visit Diagnoses Diagnosis Impacted teeth- Primary documented in this encounter Admitting Diagnoses Diagnosis Impacted teeth documented in this encounter Active and Recently Administered Medications Times are shown in EDT. Scheduled Medication Order 01/24/2021 01/25/2021 01/26/2021 clindamycin (Cleocin) 600 mg in dextrose 5% 50 mL infusion (COMPLETED) 600 mg, Intravenous, VULNERABILITY RESEARCHER TO O.R., 1 dose, On Tue01/26/21 at [...] er: Joshua Almeida MD)1006 (Given - Provider: Joshua Almeida MD) documented in this encounter Care Teams Software Configuration Specialist Relationship Specialty Start Date End Date Franc Novak MD [address] [place] [address] PCP - General Pediatrics 11/24/20 02/15/22 documented as of this encounter
--- OUTSIDE RECORDS SUMMARY | 2024-10-04 22:14 | XMS_ITS | Encounter Summary ---
Author Organization [facility] [address] Care Team Providers Care Thinner Sprayer Name Role Phone Franc Novak MD Primary Care Provider [phone] Reason for Visit * Auth/Cert Specialty Diagnoses / Procedures Referred By Contac t Referred To Contact Diagnoses dental impaction Procedures PRO IMPACT TOOTH REMOV COMP BONY PRO ANESTH, PROCEDURE ON MOUTH SURGICAL EXTRACTIONS, REMOVAL OF IMPACTED TOOTH, COMPLETELY BONY (WRVU 1.93) Referral ID Status Reason Start Date Expiration Date Visits Re quested Visits Authorized [id number] 1 1 Encounter Details Date Type Department Care Team (Late st Contact Info) Description 01/26/2021 9:41 AM EDT Anesthesia Event [facility] [place] [id number] Xiang Jenkins DO Sites, Brian D, MD [facility] [place] [address] Anesthesia Record Procedure Summary Procedure Name Responsible Anesthesiologist Anesthesia Start Time Anesthesia Stop Time SURGICAL EXTRACTIONS, REMOVAL OF IMPACTED TOOTH, COMPLETELY BONY (WRVU 1.93) (Mouth) Xiang Jenkins DO 01/26/21 0941 01/26/21 1032 Events Date Time Event Comment 01/26/2021 0937 0941 Start 0944 AN Verify 0944 An Start Data 0944 An Induction 0952 An Intubation 0954 Anesthesia Ready 1023 Extubation/LMA Out 1025 an stop data 1032 Recovery or ICU Handoff Teresa ent care was transferred to the destination unit staff after review of the patient's medical history, current anesthetic/surgical status and plan, according to the Provider Handoff Checklist. 1032 Stop Meds Name Total fentaNYL 50 mcg IV Lidocaine 50 mg Propofol 150 mg Propofol INF 205.2 mg Dexmedetomidine 4 mcg Dexamethasone 8 mg Ondansetron 8 mg Ketorolac 25 mg Succinylcholine 100 mg clindamycin (Cleocin) 600 mg in dextrose 5% 50 mL infusion 600 mg Lidocaine Jelly 2% 1 Bottle oxymetazoline (AFRIN) nasal spray 0.05% 2 spray lactated ringers infusion 800 mL * Agents Name O2 Air N2O Sevoflurane (et) * Blood No blood administrations on file. Lines, Drains, and Airways Type Details Placement Removal (RETIRED) Peripheral IV Line - Single Lumen 01/26/21; 0949; 01/26/21; 1130 01/26/21 0949 by Danica Perez CRNA 01/26/21 1130 by Gladys Jacob RN ETT Mask Ventilation: Ea sy (1); ETT Type: Cuffed, Nasal, TOMMIE; ETT Size: 6.5 mm; Indirect: Video; Notes: Asleep, Pre-O2; Attempts: 1; Laryngoscopy Grade: 1; ETT Placement Verified By: Auscultation, Capnometry, Visual; Inserted by: Chris DIA; Removal Date: 01/26/21; Removal Time: 1023 01/26/21 0952 by Danica Perez CRNA 01/26/21 1023 by Danica Perez CRNA Incision 01/26/21; 1000; gum; 05/31/22 (LDA cleanup utility RA#[id number]); 1715 (LDA cleanup utility RA#[id number]) 01/26/21 1000 by Aicha Mcgee RN 05/31/22 1715 by Gurdeep Chance documented in this encounter Social History Tobacco Use Types Packs/Day Years Used Date Smoking Tobacco: Never Assessed Sex and Gender Information Value Date Recorded Sex Assigned at Not on file Gender Identity Not on file Sexual Orientation Not on file documented as of this encounter OR Notes * Anesthesia Postprocedure Evaluation - Xiang Jenkins DO - 01/26/2021 10:42 AM EDT Department of Anesthesiology Post-procedure Note Patient: iMna Verma Procedure Summary Date: 01/26/21 [place] / [place] [facility] [address] [place] [address] OSC Anesthesia Start: 940 Anesthesia Stop: 1032 Procedure: SURGICAL EXTRACTIONS, REMOVAL OF IMPACTED TOOTH, COMPLETELY BONY (WRVU 1.93) (N/A Mouth)Diagnosis: Impacted teeth (dental impaction) Surgeons: Joshua Almeida MD Responsible Provider: Xiang Jenkins DO Anesthesia Type: general ASA Status: 2 All Anesthesia Providers: Anesthesiologist: Xiang Jenkins DO DIRECTOR FAMILY: Danica Perez CRNA Vitals Value Taken Time BP 97/41 01/26/21 1030 Temp 36.8 ??C (98.2 ??F) 01/26/21 1027 Pulse 73 01/26/21 1030 Resp 16 01/26/21 1030 SpO2 99 % 01/26/21 1030 Pain Level Patient Location: PACU/[facility] Level of Consciousness: Awake and Alert Pain Management: Satisfactory Analgesia PONV: None Cardiovascular Status: At Baseline and Hemodynamically Stable Respiratory Status: At Baseline and Room Air Postoperative Fluid Status: Intravascular EUvolemia Possible Anesthetic Complications: NONE apparent at time of evaluation Final Primary Anesthesia Type: General (The anesthetic type performed was the same as planned.) Comments: Xiang Jenkins DO * Anesthesia Preprocedure Evaluation - Xiang Jenkins DO - 01/26/2021 7:23 AM EDT Pre-Anesthesia Evaluation for: Mina Verma a 20 y.o. male. Procedure(s): SURGICAL EXTRACTIONS, REMOVAL OF IMPACTED TOOTH, COMPLETELY BONY (WRVU 1.93) Patient Active Problem List Diagnosis ??? Impacted teeth Added automatically from request for surgery [id number] History reviewed. No pertinent past medical history. History reviewed. No pertinent surgical history. Social History Tobacco Use ??? Smoking status: Not on file Substance Use Topics ??? Alcohol use: Not on file Social History Substance and Sexual Activity Drug Use Not on file Allergies Allergen Reactions ??? Amoxicillin Rash Medications: MAR and/or home medications have been reviewed. Physical Exam: Preprocedure Vitals Current as of 01/26/21 0723 No BP, pulse, respiration, SpO2, or temperature recorded. Height: Weight: BMI: IBW: Airway Assessment: Mallampati: I TM distance: >3 FB Neck ROM: full Cardiovascular Assessment: Rhythm: regular Pulmonary Assessment: breath sounds clear to auscultation Dental Assessment: Misc Assessment: Last Filed Perioperative Cognitive Screening None Anesthesia Plan: ASA 2 general, with a(n) intravenous induction 20 Y/o male for Surgical Dental Extractions No hx of difficulty w anesthesia Hx for high functioning Autism. Signs his own consents, accompanied by his dad today Denies C-P Disease, GERD, Recent illness or direct exposure to COVID19 Appears and feels well today Plan GETA/INH ind (he arrived quite tearful, afraid of needles. He requests INH ind)/IV p ind/VA and IV maint/p op pacu care and IV pain control w local and antiemetics Tylenol in recovery (cannot take pills) The patient and his dad were informed of the risks, benefits and alternatives of anesthesia. These risks included, but were not limited to, post-operative nausea and/or vomiting, pain, sore throat, dental/lip trauma, and other rare but serious complications such as major organ damage, awareness, severe allergic reactions, position-related nerve injuries, and need blood transfusions. All questionswere sought and answered. Consent was signed and placed in chart. Region - Other Informed Consent: Anesthetic plan and risks discussed with patient and father. Plan discussed with DIRECTOR FAMILY. PAT Clinic Note documented in this encounter Miscellaneous Notes * Addendum Note - Danica ePrez CRNA - 01/26/2021 2:40 PM EDT Addendum created 01/26/21 1440 by Danica Perez CRNA Flowsheet accepted, Intraprocedure Flowsheets edited documented in this encounter Plan of Treatment Not on file documented as of this encounter Visit Diagnoses Not on filedocumented in this encounter Administered Medications Inactive Administered Medications - up to 3 most recent administrations Medication Order MAR Action Action Date Dose Rate Site clindamycin (Cleocin) 600 mg in dextrose 5% 50 mL infusion 600 mg, Intravenous, CORPORATE TRAINING MANAGER TO O.R., 1 dose, On Tue01/26/21 at 0745, Indication for (Active or Suspected): Prophylaxis Given 01/26/2021 9:54 AM EDT 600 mg dexamethasone (Decadron) injection Intravenous, PRN, Starting on Tue01/26/21 at 0955, Until Tue01/26/21 at 1032, Anesthesia Intra-op, Routine Given 01/26/2021 9:55 AM EDT 8 mg dexmedetomidine (Precedex) (4 mcg/mL) bolus injection (Anesthsia) Intravenous, PRN, Starting on Tue01/26/21 at 0955, Until Tue01/26/21 at 1032, Anesthesia Intra-op, Routine Given 01/26/2021 9:55 AM EDT 4 mcg fentaNYL (pf) (50 mcg/mL) multi-dose injection Intravenous, Administer over 10 Minutes, PRN, Starting on Tue01/26/21 at 0956, Until Tue01/26/21 at 1032, Anesthesia Intra-op, Routine Given 01/26/2021 9:56 AM EDT 50 mcg ketorolac (Toradol) (30 mg/mL) injection Intravenous, PRN, Starting on Tue01/26/21 at 0955, Until Tue01/26/21 at 1032, Anesthesia Intra-op, Routine Given 01/26/2021 9:55 AM EDT 25 mg lactated ringers infusion 1,000 mL, at 100 mL/hr, Intravenous, CONTINUOUS, Starting on Tue01/26/21 at 0930, Until Tue01/26/21 at 1136, Day of Surgery (Day of Procedure) New Bag 01/26/2021 10:25 AM EDT New Bag 01/26/2021 9:41 AM EDT lidocaine (pf) (Xylocaine) (20 mg/mL) 2% injection syringe Intravenous, PRN, Starting on Tue01/26/21 at 0946, Until Tue01/26/21 at 1032, Anesthesia Intra-op, Routine Given 01/26/2021 9:46 AM EDT 50 mg lidocaine (XYLOCAINE) 2 % jelly Topical (Top), PRN, Starting on Tue01/26/21 at 1023, Until Tue01/26/21 at 1439, Anesthesia Intra-op Given 01/26/2021 10:23 AM EDT 1 Bottle ondansetron (pf) (Zofran) (2 mg/mL) injection Intravenous, PRN, Starting on Tue01/26/21 at 0955, Until Tue01/26/21 at 1032, Anesthesia Intra-op, Routine Given 01/26/2021 10:21 AM EDT 4 mg Given 01/26/2021 9:55 AM EDT 4 mg oxymetazoline (AFRIN) 0.05 % nasal spray Each Nare, Administer over 3 Days, PRN, Starting on Tue01/26/21 at 0952, Until Tue01/26/21 at 1440, Anesthesia Intra-op, Routine Given 01/26/2021 9:52 AM EDT 2 sprays propofoL (Diprivan) 10 mg/mL bolus injection (Anesthesia) Intravenous, PRN, Starting on Tue01/26/21 at 0946, Until Tue01/26/21 at 1032, Anesthesia Intra-op Given 01/26/2021 9:46 AM EDT 150 mg propofoL (Diprivan) infusion Intravenous, CONTINUOUS PRN, Starting on Tue01/26/21 at 0946, Until Tue01/26/21 at 1032, Anesthesia Intra-op, Routine Rate/Dose Change 01/26/2021 9:54 AM EDT 100 mcg/kg/min 32.4 mL/hr New Bag 01/26/2021 9:46 AM EDT 200 mcg/kg/min 64.8 mL/h r succinylcholine (Anectine;Quelicin) (20 mg/mL) injection Intravenous, PRN, Starting on Tue01/26/21 at 0955, Until Tue01/26/21 at 1032, Anesthesia Intra-op, Routine Given 01/26/2021 9:55 AM EDT 100 mg documented in this encounter Care Teams Thinner Sprayer Relationship Specialty Start Date End Date Franc Novak MD [address] [place] [address] PCP - General Pediatrics 11/24/20 02/15/22 documented as of this encounter
--- OUTSIDE RECORDS SUMMARY | 2024-10-04 22:14 | XMS_ITS | Clinical Summary ---
Author Organization [facility] Address [facility] [place] [address] Care Team Providers Care Pipe Coremaker Name Role Phone Unknown Primary Care Provider Unavailabl e Allergies Active Allergy Reactions Criticality Noted Date Comments Amoxicillin Rash 03/09/2019 Medications Medication Sig Dispensed Refills Start Date End Date Status HYDROcodone-acetamino phen ([place]) 5-325 mg Tablet Take 1 tablet by mouth every 6 hours as needed. 12 tablet 01/26/2021 Active ibuprofen (Advil;Motrin) 600 mg Tablet Take 1 tablet by mouth every 6 hours as needed for Pain. 20 tablet 01/26/2021 Active Active Problems Problem Noted Date Diagnosed Date Impacted teeth 08/12/2020 Overview (08/12/2020): Added automatically from request for surgery [id number] Encounters Date Type Department Care Team Description 10/02/2024 Interpretation Only [address] [id number] Markus Nation MD from Last 3 Months Social History Tobacco Use Types Packs/Day Years Used Date Smoking Tobacco: Never Assessed Sex and Gender Information Value Date Recorded Sex Assigned at Not on file Gender Identity Not on file Sexual Orientation Not on file Last Filed Vital Signs Vital Sign Reading Time Taken Comments Blood Pressure 117/76 01/26/2021 11:15 AM EDT Pulse 80 01/26/2021 11:15 AM EDT Temperature 36.8 ??C (98.2 ??F) 01/26/2021 10:27 AM E DT Respiratory Rate 16 01/26/2021 11:15 AM EDT Oxygen Saturation 99% 01/26/2021 11:15 AM EDT Inhaled Oxygen Concentration - - Weight 54.4 kg (120 lb) 03/09/2019 12:47 PM EDT Height - - Body Mass Index - - Plan of Treatment Health Maintenance Due Date Last Done Comments HPV vaccine (1 - Male 3-dose series) 2017 HIV screen 2020 Hepatitis C Screening 2020 Hepatitis B vaccine (0-59 yrs) (1) 2021 Tetanus/Diphtheria/Pertussis Vaccines (1 - Tdap) 03/26 Covid-19 Vaccine (1 - season) 2024 Influenza (Flu) vaccine (1 o f 1 - Influenza standard series) 06/03/2024 Procedures Procedure Name Priority Date/Time Associated Diagnosis Comments XR CHEST ONE VIEW STAT 10/02/2024 11: 03 AM EST from Last 3 Months Results * XR Chest One View (10/02/2024 11:03 AM EST) PT CLASS E RAD ADMITDTTM [id number] RAD PT RAD INFO [id number]^Nation ^Markus RAD EXAM DESC XCXR1^XR Chest 1 View^RIS RAD WORKSTATION ID [id number] RAD Anatomical Region Laterality Modality Chest N/A Radiographic Melva ging 10/02/2024 11:0 2 AM EST Impressions 10/02/2024 11:24 AM EST Clear lungs Thank you for letting us participate in the care of this patient. ??If you are a health care provider and have any questions regarding this report, please contact the number below. ??For patients who have questions please contact the health emergency care attendant that requested your imaging first. ? Narrative 10/02/2024 11:24 AM EST EXAMINATION: XR [...] patients who have questions please contactthe health emergency care attendant that requested your imaging first. Markus Nation MD IMG DX ORDERABLES from Last 3 Months Advance Directives Documents on File Type Date Recorded Patient Grip Expl anation Personal Grip 01/28/2021 3:54 PM isrrael verma jr Care Teams Pipe Coremaker Relationship Specialty Start Date End Date Unknown None PCP - General 02/16/22
--- OUTSIDE RECORDS SUMMARY | 2024-10-04 22:14 | XMS_ITS | Encounter Summary ---
Author Organization [facility] Address [address] [place] [address] Care Team Providers Care Yarn Polishing Machine Operator Name Role Phone Radha Boles MD Primary Care Provider [phone] Encounter Details Date Type Department Care Team (Late st Contact Info) Description 05/15/2020 Lab Requisition [facility] Pathology & Laboratory Medicine - [address] [address] Outr Resulting Lab, Provider Social [...] Procedure Name Priority Date/Time Associated Diagnosis Comments DO NOT ORDER STANDALONE - [facility] COVID TEST Today 05/15/2020 15:21 EDT COVID-19 TESTING Routine 05/15/2020 15:2 1 EDT documented in this encounter Results * DO NOT ORDER STANDALONE - [facility] COVID TEST (05/15/2020 15:21 EDT) COVID-19 rt-PCR Result NEGATIVE Negative 05/17/2020 1:27 EDT [facility] Comment: 2019-novel Coronavirus (2019-nCoV) not detected by the qRT-PCR assay. Consider testing for other respiratory viruses or re-collecting for 2019-nCoV testing. Note: Optimum timing for peak viral levels during infections caused by 2019-nCoV have not been determined. Collection of multiple specimens from the same patient may be necessary to detect the virus. Limitations Positive results are indicative of active infection with SARS-CoV-2 but do not rule out bacterial infection or co-infection with other viruses. The agent detected may not be the definite cause of disease. In addition, detection of viral RNA may not indicate the presence of infectious virus or that SARS-CoV-2 is the causative agent for clinical symptoms. Negative results do not preclude SARS-CoV-2 infection and should not be used as the sole basis for patient management decisions. Negative results must be combined with clinical observations, patient history, and epidemiological information. False negative results may also occur if amplification inhibitors are present in the specimen or if inadequate numbers of organisms are present in the specimen. Optimum specimen types and timing for peak viral levels during infections caused by SARS-CoV-2 have not been fully determined. Collection of multiple specimens (types and time points) from the same patient may be necessary to detect the virus. The test was validated for use with upper respiratory specimens obtained via nasopharyngeal or oropharyngeal swabs in VTM, UTM, M4, M5, M6, saline, and MTM media. The performance of this test has not been established for other specimens. Specimens collected using other FDA recommended Specimen Collection Materials listed in the FDA COVID-19 [employer] communication (December 27, 2019) are processed with the caveat that they were not all validated for use with this test and the result must be interpreted in this context. Furthermore, a false negative results may occur if a specimen is improperly collected, transported or handled. If the virus mutates in the RT-PCR target region, SARS-CoV-2 may not be detected or may be detected less predictably. Inhibitors or other types of interference may produce a false negative result. An interference study evaluating the effect of common cold medications was not performed. This test is not FDA-cleared but its performance characteristics were established by our CLIA-certified, CAP-accredited, high complexity laboratory in accordance with CLIA regulations, [employer] (CAP) guidelines (Dec 20, 2019), and FDA guidance (Dec 01, 2019). This test is only for use under the Food and Drug Administration's Emergency Use Authorization. Swab ENTIRE NASOPHARYNX / Unknown 05/15/2020 15:21 EDT 05/15/2020 21:59 EDT us Provider Outr Resulting Lab MICROBIOLOGY - GENER AL ORDERABLES Final Result [facility] [place], [place] * COVID-19 TESTING (05/15/2020 15:21 EDT) COVID-19 rt-PCR Result NEGATIVE Negative 05/17/2020 2:36 EDT [facility] Comment: 2019-novel Coronavirus (2019-nCoV) not detected by the qRT-PCR assay. Consider testing for other respiratory viruses or re-collecting for 2019-nCoV testing. Note: Optimum timing for peak viral levels during infections caused by 2019-nCoV have not been determined. Collection of multiple specimens from the same patient may be necessary to detect the virus. Limitations Positive results are indicative of active infection with SARS-CoV-2 but do not rule out bacterial infection or co-infection with other viruses. The agent detected may not be the definite cause of disease. In addition, detection of viral RNA may not indicate the presence of infectious virus or that SARS-CoV-2 is the causative agent for clinical symptoms. Negative results do not preclude SARS-CoV-2 infection and should not be used as the sole basis for patient management decisions. Negative results must be combined with clinical observations, patient history, and epidemiological information. False negative results may also occur if amplification inhibitors are present in the specimen or if inadequate numbers of organisms are present in the specimen. Optimum specimen types and timing for peak viral levels during infections caused by SARS-CoV-2 have not been fully determined. Collection of multiple specimens (types and time points) from the same patient may be necessary to detect the virus. The test was validated for use with upper respiratory specimens obtained via nasopharyngeal or oropharyngeal swabs in VTM, UTM, M4, M5, M6, saline, and MTM media. The performance of this test has not been established for other specimens. Specimens collected using other FDA recommended Specimen Collection Materials listed in the FDA COVID-19 [employer] communication (December 27, 2019) are processed with the caveat that they were not all validated for use with this test and the result must be interpreted in this context. Furthermore, a false negative results may occur if a specimen is improperly collected, transported or handled. If the virus mutates in the RT-PCR target region, SARS-CoV-2 may not be detected or may be detected less predictably. Inhibitors or other types of interference may produce a false negative result. An interference study evaluating the effect of common cold medications was not performed. This test is not FDA-cleared but its performance characteristics were established by our CLIA-certified, CAP-accredited, high complexity laboratory in accordance with CLIA regulations, [employer] (CAP) guidelines (Dec 20, 2019), and FDA guidance (Dec 01, 2019). This test is only for use under the Food and Drug Administration's Emergency Use Authorization. Performing Lab [facility] 05/17/2020 2:36 EDT [facility] Swab 05/15/2020 15:2 1 EDT 05/15/2020 21:59 EDT us Provider Outr Resulting Lab MICROBIOLOGY - GENER AL ORDERABLES Final Result [facility] [address] [place] [address] [facility] [place], [place] documented in this encounter Visit Diagnoses Not on filedocumented in this encounter Care Teams Yarn Polishing Machine Operator Relationship Specialty Start Date End Date Radha Boles MD [address] [place] [address] PCP - General Pediatrics - Primary Care 01/01/22 documented as of this encounter
== END 2024-10-04 21:47 | disposition home or self-care (01) ==
LOC: ER 22:12
PROVIDERS: Emergency Provider Student in an Organized Health Care Education/Training Program
DX: R10.32 Left lower quadrant pain (principal); R11.10 Vomiting, unspecified; R19.7 Diarrhea, unspecified
CPT/HCPCS: 36415; 80053; 96360; 99285; 74177; 85025; J3490